=== PATIENT | male | born 1965 | race Caucasian/White ===

== ENCOUNTER 2018-01-23 16:04 | Emergency (ER) | payer MEDICAID ==
[2018-01-23 16:10] VITALS: BP 117/66
--- NOTE | 2018-01-23 16:21 | ED Physician Documentation ---
History of Present Illness - Stated complaint Stated Complaint: AFIB/MED REFILL - Chief complaint Chief Complaint: Cardiac - History obtained from History obtained from: Patient - History of Present Illness Timing: Other (He was diagnosed with atrial fibrillation around Veronica of last year and has been on metoprolol ever since. He has had some issues obtaining primary care follow-up but has an upcoming appointment. Needs a refill of his metoprolol. He also complains of right-sided low back pain radiating into the right leg for the last few days and would request some painkillers for that. He is not taking aspirin, he says he does not have the money for it needs a prescription for that as well.) Review of Systems Constitutional: denies: Fever, Chills Nose: denies: Rhinorrhea / runny nose, Congestion Cardiac: denies: Chest pain / pressure, Palpitations Respiratory: denies: Dyspnea, Cough PD PAST MEDICAL HISTORY - Present Medications Home Medications: Ambulatory Orders Medication Instructions Recorded Confirmed Acetaminophen [Tylenol] 650 mg PO Q6H PRN #30 tablet 01/23/18 Aspirin [Adult Aspirin] 81 mg PO DAILY #30 tablet. 01/23/18 HYDROcod/ACETAM 5/325 [[place] 5/325] 1 - 2 ea PO Q6H PRN #7 tablet 01/23/18 Metoprolol Tartrate 25 mg PO BID #60 tablet 01/23/18 PD ED PE NORMAL - Vitals Vital signs reviewed: Yes - General General: Alert and 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, No acute distress - Cardiac Cardiac: Other (Irregularly irregular) - Back Back: No spinal TTP - Extremities Extremities: Other (The patient has equal and normal Achilles and patellar reflexes bilaterally. Normal sensation in all areas of the legs. Patient denies saddle anesthesia. Normal strength in flexion-extension at the ankles, knees, and flexion of the hips. Bounding pedal pulses) - Neuro Neuro: Alert and 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, Normal speech Results - Vitals Vitals: Vital Signs - 24 hr 01/23/18 16:06 Temperature 36.8 C Heart Rate 115 H Respiratory 16 Rate Blood Pressure 117/66 O2 Saturation 97 Oxygen O2 Source Room air PD MEDICAL DECISION MAKING - Sepsis Event Vital Signs: Vital Signs - 24 hr 01/23/18 16:06 Temperature 36.8 C Heart Rate 115 H Respiratory 16 Rate Blood Pressure 117/66 O2 Saturation 97 Oxygen O2 Source Room air Departure - Departure Disposition: Home, Self Care Clinical Impression: Atrial fibrillation Qualifiers: Atrial fibrillation type: chronic Qualified Code(s): I48.2 - Chronic atrial fibrillation Back pain Qualifiers: Back pain location: low back pain Chronicity: acute Back pain laterality: right Sciatica presence: without sciatica Qualified Code(s): M54.5 - Low back pain Condition: Good Record reviewed to determine appropriate education?: Yes Instructions: Atrial Fibrillation Dc Prescriptions: Acetaminophen [Tylenol] 650 mg PO Q6H PRN #30 tablet PRN Reason: PRN PAIN &/OR FEVER Aspirin [Adult Aspirin] 81 mg PO DAILY #30 tablet. HYDROcod/ACETAM 5/325 [[place] 5/325] 1 - 2 ea PO Q6H PRN #7 tablet PRN Reason: Pain Metoprolol Tartrate 25 mg PO BID #60 tablet Comments: Follow-up with your physician in 4 days as scheduled. Return if worse or if new symptoms develop.
== END 2018-01-23 16:29 | disposition home or self-care (01) ==
LOC: ED 16:04
DX: Z76.0 Encounter for issue of repeat prescription (principal); I48.2 Chronic atrial fibrillation; M54.5 Low back pain; G89.29 Other chronic pain
CPT/HCPCS: 99283

== ENCOUNTER 2018-02-14 07:56 | Emergency (ER) | payer MEDICAID ==
--- NOTE | 2018-02-14 08:46 | ED Physician Documentation ---
History of Present Illness - Stated complaint Stated Complaint: MED REFILL - Chief complaint Chief Complaint: Ext Problem - History obtained from History obtained from: Patient - Additonal information Additional information: The patient is a 52-year-old male with history of atrial fibrillation who presents stating, "I need my medication." He has been on metoprolol 25 mg daily since being seen in the emergency department here 3 weeks ago. He states he lost his medication 2 days ago while backpacking. He has noticed palpitations and lightheadedness this morning. He denies chest pain or shortness of breath. He admits to drinking alcohol on a daily basis, and last had beer yesterday. In addition to the above he complains of intermittent pain in his right calf, which he has noticed for the past month. He denies any swelling in his legs. He does not have a primary physician. Review of his medical record reveals that when seen here 3 weeks ago he also complained of low back pain and right leg pain, with no neurologic deficit or pedal edema. Review of Systems Constitutional: reports: Other (Lightheaded). denies: Fever Ears: denies: Tinnitus/ringing Nose: denies: Congestion Throat: denies: Sore throat Cardiac: reports: Palpitations. denies: Chest pain / pressure Respiratory: denies: Dyspnea, Cough GI: denies: Abdominal Pain, Nausea, Vomiting : denies: Dysuria Skin: denies: Rash Musculoskeletal: reports: Extremity pain (Intermittent right calf pain.) Neurologic: reports: Headache. denies: Focal weakness, Numbness PD PAST MEDICAL HISTORY - Past Medical History Cardiovascular: Atrial fibrillation Respiratory: Sleep apnea - Past Surgical History Past Surgical History: No - Present Medications Home Medications: Ambulatory Orders Medication Instructions Recorded Confirmed Acetaminophen [Tylenol] 650 mg PO Q6H PRN #30 tablet 01/23/18 Aspirin [Adult Aspirin] 81 mg PO DAILY #30 tablet. 01/23/18 Carvedilol [Coreg] 1 tab PO DAILY 02/14/18 02/14/18 Metoprolol Tartrate [Lopressor] 25 mg PO BID #60 tablet 02/14/18 - Allergies Allergies/Adverse Reactions: Allergies Allergy/AdvReac Type Severity Reaction Status Date / Time No Known Drug Allergies Allergy Verified 01/23/18 16:21 - Social History Does the pt smoke?: Yes Smoking Status: Current every day smoker Does the pt drink ETOH?: Yes Does the pt have substance abuse?: No - Immunizations Immunizations are current?: Yes PD ED PE NORMAL - Vitals Vital signs reviewed: Yes (tachycardic) - General General: Alert and 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, Well developed/nourished, Other (Has a tendency to avoid eye contact.) - HEENT HEENT: Atraumatic, Moist mucous membranes, Pharynx benign - Neck Neck: No adenopathy, No JVD - Cardiac Cardiac: No murmur, Other (Rapid rate, irregularly irregular them.) - Respiratory Respiratory: No respiratory distress, Clear bilaterally - Abdomen Abdomen: Soft, Non tender, Other (Rotund abdomen.) - Back Back: No CVA TTP - Derm Derm: No rash - Extremities Extremities: No edema, Other (Mild tenderness to palpation at the posterolateral aspect of the right calf. There is no pedal edema.) - Neuro Neuro: Alert and 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, No motor deficit, No sensory deficit Results - Vitals Vitals: Vital Signs - 24 hr 02/14/18 02/14/18 02/14/18 08:09 08:20 09:36 Temperature 36.6 C Heart Rate 120 H 101 H 132 H Respiratory 18 18 11 L Rate Blood Pressure 141/120 H 192/138 H 159/91 H O2 Saturation 97 97 98 02/14/18 02/14/18 02/14/18 09:44 09:50 10:10 Temperature Heart Rate 102 H 88 116 H Respiratory 16 16 14 Rate Blood Pressure 144/102 H 154/105 H 139/113 H O2 Saturation 98 98 98 02/14/18 02/14/18 02/14/18 10:30 11:10 11:15 Temperature Heart Rate 113 H 110 H 97 Respiratory 15 14 14 Rate Blood Pressure 144/120 H 143/102 H 116/102 H O2 Saturation 99 97 98 02/14/18 02/14/18 02/14/18 11:22 11:35 11:57 Temperature Heart Rate 98 98 89 Respiratory 14 14 14 Rate Blood Pressure 116/97 H 144/89 H 149/94 H O2 Saturation 97 97 97 02/14/18 12:40 Temperature Heart Rate 88 Respiratory 14 Rate Blood Pressure 146/82 H O2 Saturation 98 Oxygen O2 Source Room air - EKG (time done) 08:21 Rate: Rate (enter#) (147) Rhythm: Atrial fibrillation [place]: Normal Ischemia: T wave inversion (in III.) Compare to prior EKG: Old EKG unavailable Computer interpretation: Agree with computer - Labs Labs: Laboratory Tests 02/14/18 02/14/18 02/14/18 09:25 09:25 09:25 WBC 8.7 RBC 4.89 Hgb 15.1 Hct 46.0 MCV 94.1 H MCH 31.0 MCHC 32.9 RDW 13.9 Plt Count 199 MPV 7.6 Neut # (Auto) 6.7 H Lymph # (Auto) 1.1 L [place] # (Auto) 0.7 Eos # (Auto) 0.2 Baso # (Auto) 0.0 Absolute Nucleated RBC 0.00 Nucleated RBC % 0.0 Sodium 136 Potassium 4.0 Chloride 98 L Carbon Dioxide 25 Anion Gap 13.0 BUN 13 Creatinine 0.9 Estimated GFR (MDRD) 88 L Glucose 110 H Calcium 9.0 Total Bilirubin 1.4 H AST 38 ALT 34 Alkaline Phosphatase 68 Troponin I < 0.04 Total Protein 7.8 Albumin 4.1 Globulin 3.7 Albumin/Globulin Ratio 1.1 Lipase 39 PD MEDICAL DECISION MAKING - ED course Complexity details: reviewed old records, reviewed results, re-evaluated patient , considered differential, d/w patient ED course: The patient's presentation is significant for atrial fibrillation with rapid ventricular response. Based on his history this appears to be recurrent, if not chronic, atrial fibrillation. He has been taking metoprolol until 3 days ago, which had apparently been controlling his rate. He has not been treated with anticoagulant medication. Since his last emergency department visit one month ago, he has been seen in outpatient clinic once, but states, "they wouldn' t even prescribe any medication." His symptoms, electrocardiogram, and troponin do not suggest an acute myocardial ischemic event. Treatment in the emergency department included administration of normal saline 1 L IV, 4 baby aspirin orally, metoprolol 5 mg IV, followed by diltiazem 10 mg IV, and metoprolol 25 mg orally. His tachycardia resolved with the above treatment, and he maintained good blood pressure. He felt subjectively much improved, and was anxious to be discharged. I discussed with him the importance of outpatient follow-up, including potentially a cardiology referral. He is being discharged with prescription for metoprolol 25 mg twice daily. I discussed with him potentially worrisome signs or symptoms that should prompt reevaluation in the emergency department. - Sepsis Event Vital Signs: Vital Signs - 24 hr 02/14/18 02/14/18 02/14/18 08:09 08:20 09:36 Temperature 36.6 C Heart Rate 120 H 101 H 132 H Respiratory 18 18 11 L Rate Blood Pressure 141/120 H 192/138 H 159/91 H O2 Saturation 97 97 98 02/14/18 02/14/18 02/14/18 09:44 09:50 10:10 Temperature Heart Rate 102 H 88 116 H Respiratory 16 16 14 Rate Blood Pressure 144/102 H 154/105 H 139/113 H O2 Saturation 98 98 98 02/14/18 02/14/18 02/14/18 10:30 11:10 11:15 Temperature Heart Rate 113 H 110 H 97 Respiratory 15 14 14 Rate Blood Pressure 144/120 H 143/102 H 116/102 H O2 Saturation 99 97 98 02/14/18 02/14/18 02/14/18 11:22 11:35 11:57 Temperature Heart Rate 98 98 89 Respiratory 14 14 14 Rate Blood Pressure 116/97 H 144/89 H 149/94 H O2 Saturation 97 97 97 02/14/18 12:40 Temperature Heart Rate 88 Respiratory 14 Rate Blood Pressure 146/82 H O2 Saturation 98 Oxygen O2 Source Room air Departure - Departure Disposition: 01 Home, Self Care Clinical Impression: Atrial fibrillation with rapid ventricular response Condition: Stable Instructions: ED Afib Follow-Up: [facility] [Provider Group] Prescriptions: Metoprolol Tartrate [Lopressor] 25 mg PO BID #60 tablet Comments: Resume taking metoprolol as prescribed. You should also take aspirin daily. Follow up with your primary physician within 2 weeks as scheduled. Return to the emergency department if you develop recurrent tachycardia, chest pain, shortness of breath, or otherwise worsening symptoms. Discharge Date/Time: 02/14/18 12:49
[2018-02-14] MEDS ORDERED: METOPROLOL 5 MG/5 ML VIAL IVP STA (09:11)
[2018-02-14] MEDS ORDERED: SODIUM CHLORIDE 0.9% 1,000 ML IV ONE ×2 (09:11→10:54)
[2018-02-14 09:32] LABS: BASOPHILS % (AUTO) 0.4 %; EOSINOPHILS # (AUTO) 0.2 10^3/uL (0.0-0.7); EOSINOPHILS % (AUTO) 2.2 %; HGB - HEMOGLOBIN 15.1 g/dL (14.0-18.0); LYMPHOCYTES # (AUTO) 1.1 10^3/uL (1.5-3.5); LYMPHOCYTES % (AUTO) 12.6 %; MEAN CORPUSCULAR HGB CONC 32.9 g/dL (32.0-36.0); MEAN CORPUSCULAR VOLUME 94.1 fL (80.0-94.0); MEAN PLATELET VOLUME 7.6 fL (7.4-11.4); MONOCYTES # (AUTO) 0.7 10^3/uL (0.0-1.0); MONOCYTES % (AUTO) 7.8 %; NEUTROPHILS # (AUTO) 6.7 10^3/uL (1.5-6.6); PLT - PLATELET COUNT 199 10^3/uL (130-450); RED BLOOD COUNT 4.89 10^6/uL (4.70-6.10); RED CELL DISTRIBUTION WIDTH 13.9 % (12.0-15.0); WHITE BLOOD COUNT 8.7 x10^3/uL (4.8-10.8)
[2018-02-14 09:45] LABS: ALBUMIN 4.1 g/dL (3.2-5.5); ALBUMIN/GLOBULIN RATIO 1.1 (1.0-2.2); BILIRUBIN,TOTAL 1.4 mg/dL (0.2-1.0); CREATININE 0.9 mg/dL (0.6-1.2); TOTAL PROTEIN 7.8 g/dL (6.7-8.2)
[2018-02-14] MEDS ORDERED: METOPROLOL TARTRATE 50 MG TABLET PO STA (10:53)
[2018-02-14] MEDS ORDERED: diltiaZEM INJ 5 MG/ML VIAL IVP STA (10:53)
[2018-02-14] MEDS ORDERED: ASPIRIN CHEW 81 MG TABLET PO STA (10:54)
[2018-02-14 12:51] VITALS: BP 146/82
== END 2018-02-14 12:49 | disposition home or self-care (01) ==
LOC: ED 07:56
DX: I48.91 Unspecified atrial fibrillation (principal); F17.200 Nicotine dependence, unspecified, uncomplicated; Z79.82 Long term (current) use of aspirin
CPT/HCPCS: 36415; 80053; 83690; 84484; 85025; 93005; 96361; 96374; 96375; 99284; 99285; A9270

== ENCOUNTER 2018-02-16 04:47 | Outpatient (CLI) | payer MEDICAID | END 2018-02-16 04:48 | disposition critical access hospital (66) | LOC: EMS 04:47 | PROVIDERS: ATTEND Surgery | DX: R09.89 Other specified symptoms and signs involving the circulatory and respiratory systems (principal) | CPT/HCPCS: A0425; A0429 ==

== ENCOUNTER 2018-02-16 05:03 | Emergency (ER) | payer MEDICAID ==
--- NOTE | 2018-02-16 05:46 | XRAY Report ---
Procedure Date: 02/16/2018 Accession Number: [id number] / [id number] Procedure: XR - Chest 2 View X-Ray CPT Code: 33170 FULL RESULT: EXAM: CHEST RADIOGRAPHY EXAM DATE: 02/16/2018 05:40 AM. CLINICAL HISTORY: Chest pain. COMPARISON: None. TECHNIQUE: 2 views. FINDINGS: Lungs/Pleura: No alveolar consolidation or pleural effusion seen. No pneumothorax. Mediastinum: Heart and mediastinal contours are unremarkable. Other: None. IMPRESSION: 1. No acute abnormality seen in the chest. RADIA
--- NOTE | 2018-02-16 06:05 | ED Physician Documentation ---
History of Present Illness - Stated complaint Stated Complaint: AFIB/ETOH - Chief complaint Chief Complaint: Cardiac - History obtained from History obtained from: Patient - Additonal information Additional information: 52-year-old male was brought to the emergency department for evaluation of atrial fibrillation and has a known history of atrial fibrillation. This evening the patient consumed a significant amount of alcohol and called EMS. The patient reports being out of his medications. The patient's history is somewhat limited secondary to his intoxicated state. Presently the patient is denying chest pain or shortness of breath. Symptoms are described as moderate. No other associated symptoms Review of Systems Unable to obtain: Intoxicated Constitutional: reports: Fatigue. denies: Fever Cardiac: reports: Palpitations. denies: Chest pain / pressure Respiratory: denies: Dyspnea GI: denies: Abdominal Pain PD PAST MEDICAL HISTORY - Past Medical History Past Medical History: Yes Cardiovascular: Atrial fibrillation Respiratory: Sleep apnea - Past Surgical History Past Surgical History: No - Present Medications Home Medications: Ambulatory Orders Medication Instructions Recorded Confirmed Acetaminophen [Tylenol] 650 mg PO Q6H PRN #30 tablet 01/23/18 Aspirin [Adult Aspirin] 81 mg PO DAILY #30 tablet. 01/23/18 Carvedilol [Coreg] 1 tab PO DAILY 02/14/18 02/14/18 Metoprolol Tartrate [Lopressor] 25 mg PO BID #60 tablet 02/14/18 - Allergies Allergies/Adverse Reactions: Allergies Allergy/AdvReac Type Severity Reaction Status Date / Time No Known Drug Allergies Allergy Verified 02/16/18 05:08 - Social History Does the pt smoke?: No Smoking Status: Never smoker Does the pt drink ETOH?: Yes Does the pt have substance abuse?: No - Immunizations Immunizations are current?: Yes - POLST Patient has POLST: No PD ED PE NORMAL - General General: No acute distress, Other (The patient is alert and intoxicated) - HEENT HEENT: Atraumatic, PERRL, EOMI - Neck Neck: Supple, no meningeal sign - Cardiac Cardiac: Other (Irregular rhythm with normal rate) - Respiratory Respiratory: No respiratory distress - Abdomen Abdomen: Normal bowel sounds - Derm Derm: Normal color - Extremities Extremities: No deformity, Normal ROM s pain - Neuro Neuro: Other (The patient is alert, follows simple commands and is intoxicated) - Psych Psych: Normal mood Results - Vitals Vitals: Vital Signs - 24 hr 02/16/18 05:04 Temperature 36.1 C L Heart Rate 80 Respiratory 18 Rate Blood Pressure 111/66 O2 Saturation 97 Oxygen O2 Source Room air - EKG (time done) No standard instances Rate: Rate (enter#) (78 beats a minute) Rhythm: Atrial fibrillation Intervals: QRS normal Ischemia: Non specific changes Other comments: Other comments (Atrial fibrillation with controlled rate and no acute ischemic changes) - Labs Labs: Laboratory Tests 02/16/18 02/16/18 02/16/18 06:40 06:40 06:40 WBC 6.2 RBC 4.41 L Hgb 13.7 L Hct 42.2 MCV 95.8 H MCH 31.1 H MCHC 32.5 RDW 13.9 Plt Count 184 MPV 7.6 Neut # (Auto) 2.7 Lymph # (Auto) 2.6 [place] # (Auto) 0.4 Eos # (Auto) 0.6 Baso # (Auto) 0.0 Absolute Nucleated RBC 0.00 Nucleated RBC % 0.0 PT 10.1 INR 0.9 APTT 25.5 Sodium 138 Potassium 3.7 Chloride 102 Carbon Dioxide 24 Anion Gap 12.0 BUN 11 Creatinine 0.9 Estimated GFR (MDRD) 88 L Glucose 109 H Calcium 8.6 Magnesium 2.3 Total Bilirubin 0.3 AST 47 H ALT 37 Alkaline Phosphatase 71 Total Creatine Kinase 124 B-Natriuretic Peptide Total Protein 7.5 Albumin 4.2 Globulin 3.3 Albumin/Globulin Ratio 1.3 Lipase 82 H 02/16/18 06:40 WBC RBC Hgb Hct MCV MCH MCHC RDW Plt Count MPV Neut # (Auto) Lymph # (Auto) [place] # (Auto) Eos # (Auto) Baso # (Auto) Absolute Nucleated RBC Nucleated RBC % PT INR APTT Sodium Potassium Chloride Carbon Dioxide Anion Gap BUN Creatinine Estimated GFR (MDRD) Glucose Calcium Magnesium Total Bilirubin AST ALT Alkaline Phosphatase Total Creatine Kinase B-Natriuretic Peptide 188 H Total Protein Albumin Globulin Albumin/Globulin Ratio Lipase - Rads (name of study) CXR Radiology: See rad report (Impression: No acute disease) PD MEDICAL DECISION MAKING - ED course Complexity details: other (The patient's care will be turned over to the oncoming emergency physician Dr. Klein to follow-up on the patient's labs and reevaluation once the patient's not heavily intoxicated and for final disposition) - Sepsis Event Vital Signs: Vital Signs - 24 hr 02/16/18 05:04 Temperature 36.1 C L Heart Rate 80 Respiratory 18 Rate Blood Pressure 111/66 O2 Saturation 97 Oxygen O2 Source Room air Departure - Departure Clinical Impression: Intoxication Atrial fibrillation Qualifiers: Atrial fibrillation type: chronic Qualified Code(s): I48.2 - Chronic atrial fibrillation
[2018-02-16 06:47] LABS: BASOPHILS % (AUTO) 0.6 %; EOSINOPHILS # (AUTO) 0.6 10^3/uL (0.0-0.7); EOSINOPHILS % (AUTO) 9.6 %; HGB - HEMOGLOBIN 13.7 g/dL (14.0-18.0); LYMPHOCYTES # (AUTO) 2.6 10^3/uL (1.5-3.5); LYMPHOCYTES % (AUTO) 41.4 %; MEAN CORPUSCULAR HEMOGLOBIN 31.1 pg (27.0-31.0); MEAN CORPUSCULAR HGB CONC 32.5 g/dL (32.0-36.0); MEAN CORPUSCULAR VOLUME 95.8 fL (80.0-94.0); MEAN PLATELET VOLUME 7.6 fL (7.4-11.4); MONOCYTES # (AUTO) 0.4 10^3/uL (0.0-1.0); MONOCYTES % (AUTO) 5.8 %; NEUTROPHILS # (AUTO) 2.7 10^3/uL (1.5-6.6); NEUTROPHILS % (AUTO) 42.6 %; PLT - PLATELET COUNT 184 10^3/uL (130-450); RED BLOOD COUNT 4.41 10^6/uL (4.70-6.10); RED CELL DISTRIBUTION WIDTH 13.9 % (12.0-15.0); WHITE BLOOD COUNT 6.2 x10^3/uL (4.8-10.8)
[2018-02-16 06:54] LABS: INR 0.9 (0.8-1.2); PT - PROTHROMBIN TIME 10.1 secs (9.9-12.6)
[2018-02-16 06:58] LABS: ALBUMIN 4.2 g/dL (3.2-5.5); ALBUMIN/GLOBULIN RATIO 1.3 (1.0-2.2); BILIRUBIN,TOTAL 0.3 mg/dL (0.2-1.0); CALCIUM 8.6 mg/dL (8.5-10.3); CREATININE 0.9 mg/dL (0.6-1.2); MAGNESIUM 2.3 mg/dL (1.7-2.8); TOTAL PROTEIN 7.5 g/dL (6.7-8.2)
[2018-02-16] MEDS ORDERED: METOPROLOL TARTRATE 50 MG TABLET PO STA (16:50)
[2018-02-16 17:55] VITALS: BP 110/80
--- NOTE | 2018-03-15 14:28 | ED Physician Documentation ---
ED Addendum - Addendum Addendum: 03/15/18 14:26 The patient was stable through the day. Got verbal report from night EDMD and assessed patient who was asleep at time of shift onset. He slept several hours. He did not have any complaints other than hungry and was given sandwiches. He did not have a ride nor friend to call. Subsequently he was well sober and walking well, talking clearly, and was discharged from the ER. He was going to call a taxi. Disposition: discharged home stable Diagnoses: alcohol intoxication, chronic atrial fibrillation, out of medication
== END 2018-02-16 17:50 | disposition home or self-care (01) ==
LOC: EDBD → EDUNIT# → ED 05:03
DX: F10.120 Alcohol abuse with intoxication, uncomplicated (principal); I48.2 Chronic atrial fibrillation
CPT/HCPCS: 36415; 71046; 80053; 80320; 82550; 83690; 83735; 83880; 85025; 85610; 85730; 93005; 99283; A9270

== ENCOUNTER 2018-02-17 21:22 | Outpatient (CLI) | payer MEDICAID | END 2018-02-17 21:23 | disposition critical access hospital (66) | LOC: EMS 21:22 | PROVIDERS: ATTEND Surgery | DX: R51 Headache (principal); Z72.89 Other problems related to lifestyle | CPT/HCPCS: A0425; A0429 ==

== ENCOUNTER 2018-02-17 21:37 | Emergency (ER) | payer MEDICAID ==
--- NOTE | 2018-02-17 22:04 | ED Physician Documentation ---
History of Present Illness - Stated complaint Stated Complaint: ETOH - Chief complaint Chief Complaint: General - History obtained from History obtained from: Patient (52-year-old male who recently moved to the area. Return to the emergency department for reevaluation of intoxication. The patient has had numerous visits recently for intoxication and refills of his medications. Today the patient wore out his welcome at a local convenience store and called EMS. The patient has no active medical complaints. The patient is noncompliant with his medical care. No reports of injury. The patient is conversant and able to answer all my questions and appears to be in no acute distress) Review of Systems Constitutional: denies: Fever Eyes: denies: Loss of vision Ears: denies: Ear pain Nose: denies: Rhinorrhea / runny nose, Congestion Cardiac: denies: Chest pain / pressure, Palpitations Respiratory: denies: Dyspnea GI: denies: Abdominal Pain PD PAST MEDICAL HISTORY - Past Medical History Cardiovascular: Atrial fibrillation Respiratory: Sleep apnea - Past Surgical History Past Surgical History: No - Present Medications Home Medications: Ambulatory Orders Medication Instructions Recorded Confirmed Acetaminophen [Tylenol] 650 mg PO Q6H PRN #30 tablet 01/23/18 Aspirin [Adult Aspirin] 81 mg PO DAILY #30 tablet. 01/23/18 Carvedilol [Coreg] 1 tab PO DAILY 02/14/18 02/14/18 Metoprolol Tartrate [Lopressor] 25 mg PO BID #60 tablet 02/14/18 Metoprolol Tartrate [Lopressor] 25 mg PO BID #60 tablet 02/16/18 - Allergies Allergies/Adverse Reactions: Allergies Allergy/AdvReac Type Severity Reaction Status Date / Time No Known Drug Allergies Allergy Verified 02/17/18 21:51 - Social History Does the pt smoke?: No Smoking Status: Never smoker Does the pt drink ETOH?: Yes Does the pt have substance abuse?: No - Immunizations Immunizations are current?: Yes - POLST Patient has POLST: No PD ED PE NORMAL - General General: Alert and 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, No acute distress - HEENT HEENT: Atraumatic, PERRL, EOMI, Ears normal - Cardiac Cardiac: Other (Irregular rhythm, rate controlled) - Respiratory Respiratory: No respiratory distress - Extremities Extremities: No deformity - Neuro Neuro: Alert and 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, Normal speech - Psych Psych: Normal mood Results - Vitals Vitals: Vital Signs - 24 hr 02/17/18 21:45 Temperature 36.6 C Heart Rate 90 Respiratory 17 Rate Blood Pressure 112/79 O2 Saturation 98 Oxygen O2 Source Room air PD MEDICAL DECISION MAKING - ED course Complexity details: other (The patient's been seen in the emergency department recently multiple times, the patient recently had lab work which was unremarkable. The patient has no acute medical complaints today. The patient' s only complaint is that he consumed alcohol and has no place to sleep at. The patient has noMedical complaint and there is no evidence of any acute emergency medical condition which would necessitate further workup in the emergency department. Patient appears appropriate for discharge. I advised that he follow-up with primary care for ongoing outpatient management. I discussed warning signs and recommended returning for any worsening or any concerns.) - Sepsis Event Vital Signs: Vital Signs - 24 hr 02/17/18 21:45 Temperature 36.6 C Heart Rate 90 Respiratory 17 Rate Blood Pressure 112/79 O2 Saturation 98 Oxygen O2 Source Room air Departure - Departure Disposition: 01 Home, Self Care Clinical Impression: Alcohol intoxication Qualifiers: Complication of substance-induced condition: uncomplicated Qualified Code(s): F10.920 - Alcohol use, unspecified with intoxication, uncomplicated Condition: Good [facility] Comments: Worsening symptoms or any concerns
[2018-02-17] MEDS ORDERED: IBUPROFEN 600 MG TABLET PO STA (22:28)
[2018-02-17] MEDS ORDERED: ACETAMINOPHEN 500 MG TABLET PO STA (22:28)
[2018-02-18 06:31] VITALS: BP 102/64
== END 2018-02-18 06:32 | disposition home or self-care (01) ==
LOC: EDUNIT# → ED 21:37
DX: F10.920 Alcohol use, unspecified with intoxication, uncomplicated (principal); I48.91 Unspecified atrial fibrillation; Z79.82 Long term (current) use of aspirin; Z91.19 Patient's noncompliance with other medical treatment and regimen
CPT/HCPCS: 99282; 99283; A9270

== ENCOUNTER 2018-03-20 22:30 | Emergency (ER) | payer MEDICAID ==
--- NOTE | 2018-03-21 00:17 | ED Physician Documentation ---
History of Present Illness - Stated complaint Stated Complaint: HEADRUSH/BP ISSUE - Chief complaint Chief Complaint: Cardiac - History obtained from History obtained from: Patient - History of Present Illness Timing: Today (tonight) Pain level now: 0 - Additonal information Additional information: c/o fluttering in my chest which patient felt was c/w previous episodes of PATRIC , and generalized mild headache c/w previous episodes of high blood pressure. He does not have a cuff to check BP at home. He states that the symptoms have improved prior to this exam. Review of Systems Cardiac: reports: Palpitations. denies: Chest pain / pressure Respiratory: reports: Reviewed and negative GI: reports: Reviewed and negative Neurologic: reports: Headache. denies: Generalized weakness, Focal weakness, Numbness PD PAST MEDICAL HISTORY - Past Medical History Cardiovascular: Atrial fibrillation Respiratory: Sleep apnea Neuro: None GI: None : None HEENT: None Psych: Other Musculoskeletal: None Derm: None - Past Surgical History Past Surgical History: No - Present Medications Home Medications: Ambulatory Orders Medication Instructions Recorded Confirmed Acetaminophen [Tylenol] 650 mg PO Q6H PRN #30 tablet 01/23/18 Aspirin [Adult Aspirin] 81 mg PO DAILY #30 tablet. 01/23/18 Carvedilol [Coreg] 1 tab PO DAILY 02/14/18 02/14/18 Metoprolol Tartrate [Lopressor] 25 mg PO BID #60 tablet 02/14/18 Metoprolol Tartrate [Lopressor] 25 mg PO BID #60 tablet 02/16/18 Aspirin [Adult Aspirin] 81 mg PO DAILY #30 tablet. 03/21/18 Metoprolol Tartrate 25 mg PO BID #30 tablet 03/21/18 - Allergies Allergies/Adverse Reactions: Allergies Allergy/AdvReac Type Severity Reaction Status Date / Time No Known Drug Allergies Allergy Verified 03/20/18 22:45 - Social History Does the pt smoke?: No Smoking Status: Never smoker Does the pt drink ETOH?: Yes Does the pt have substance abuse?: No - Immunizations Immunizations are current?: Yes - POLST Patient has POLST: No PD ED PE NORMAL - Vitals Vital signs reviewed: Yes - General General: Alert and 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, Well developed/nourished - HEENT HEENT: PERRL, EOMI, Moist mucous membranes - Cardiac Cardiac: No murmur - Respiratory Respiratory: No respiratory distress, Clear bilaterally - Derm Derm: Normal color, Warm and dry - Extremities Extremities: No edema - Neuro Neuro: Alert and 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 PD ED PE EXPANDED - Cardiac Cardiac: Irregularly irregular Results - Vitals Vitals: Vital Signs - 24 hr 03/20/18 03/20/18 03/21/18 22:36 23:30 00:22 Temperature 37.1 C Heart Rate 107 H 93 101 H Respiratory 18 16 18 Rate Blood Pressure 139/97 H 134/93 H 123/80 O2 Saturation 96 96 96 Oxygen O2 Source Room air - EKG (time done) No standard instances Rate: Rate (enter#) (98) Rhythm: Atrial fibrillation [place]: Normal QRS: Normal Ischemia: Normal ST segments PD MEDICAL DECISION MAKING - ED course Complexity details: reviewed old records, considered differential, d/w patient - Sepsis Event Vital Signs: Vital Signs - 24 hr 03/20/18 03/20/18 03/21/18 22:36 23:30 00:22 Temperature 37.1 C Heart Rate 107 H 93 101 H Respiratory 18 16 18 Rate Blood Pressure 139/97 H 134/93 H 123/80 O2 Saturation 96 96 96 Oxygen O2 Source Room air Departure - Departure Disposition: 01 Home, Self Care Clinical Impression: Atrial fibrillation Condition: Good Instructions: ED Afib, ED HTN Established Prescriptions: Aspirin [Adult Aspirin] 81 mg PO DAILY #30 tablet. Metoprolol Tartrate 25 mg PO BID #30 tablet Comments: You need to arrange for regularly scheduled appointments with your primary care provider for refills on your chronic medications, such as metoprolol and aspirin. Prescriptions are being provided tonight to bridge until you can contact your doctor's office. As we discussed, these medications can often be called into a pharmacy without requiring a visit to the office (but this decision is up to your doctor and would certainly require regular visits initially and not missing appointments). Discharge Date/Time: 03/21/18 00:39
[2018-03-21 00:22] VITALS: BP 123/80
[2018-03-21] MEDS ORDERED: METOPROLOL TARTRATE 50 MG TABLET PO STA (00:25)
== END 2018-03-21 00:39 | disposition home or self-care (01) ==
LOC: ED 22:30
DX: I48.91 Unspecified atrial fibrillation (principal); Z79.82 Long term (current) use of aspirin
CPT/HCPCS: 93005; 99283; 99284; A9270

== ENCOUNTER 2018-04-21 12:41 | Outpatient (CLI) | payer MEDICAID | END 2018-04-21 12:42 | disposition critical access hospital (66) | LOC: EMS 12:41 | PROVIDERS: ATTEND Surgery | DX: R46.4 Slowness and poor responsiveness (principal); R26.81 Unsteadiness on feet; R32 Unspecified urinary incontinence | CPT/HCPCS: A0425; A0429; A0999 ==

== ENCOUNTER 2018-04-21 12:59 | Emergency (ER) | payer MEDICAID ==
[2018-04-21] MEDS ORDERED: MAGNESIUM SULFATE 2 GRAM 2 GM/50 ML BAG IV STA (13:30)
[2018-04-21] MEDS ORDERED: LORazepam 2 MG/ML VIAL IVP STA (13:30)
[2018-04-21] MEDS ORDERED: MULTIVITAMIN 10 ML in SODIUM CHLORIDE 0.9% 1,000 ML IV STA (13:30)
[2018-04-21] MEDS ORDERED: THIAMINE INJ 100 MG, FOLIC ACID INJ 1 MG in SODIUM CHLORIDE 0.9% 100ML 100 ML IV STA (13:30)
--- NOTE | 2018-04-21 13:34 | ED Physician Documentation ---
PD HPI ALTERED MENTAL STATUS - Stated complaint Stated Complaint: GLF - Chief complaint Chief Complaint: Neuro - History obtained from History obtained from: Patient, EMS - History of Present Illness Timing - onset: Today Timing - details: Abrupt onset Quality / character: Unresponsive Associated symptoms: Headache, Seizure activity Contributing factors: Other (stoppe alcohol 3 days ago) [place] status: Alert and 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, Ambulatory, Independent Similar symptoms before: Has not had sx before Recently seen: Not recently seen - Additional information Additional information: 52-year-old male with a history of alcoholism has stopped drinking about 3 days ago. Today he was found in a garden unconscious. He was eventually aroused and transported to the hospital. He states he has had some shaking with alcohol withdrawal he has never had a seizure previously that he is aware of. Review of Systems Constitutional: denies: Fever Eyes: denies: Decreased vision Ears: denies: Ear pain Nose: denies: Congestion Throat: denies: Sore throat Cardiac: denies: Chest pain / pressure, Palpitations Respiratory: denies: Dyspnea, Cough GI: denies: Abdominal Pain, Nausea, Vomiting : denies: Dysuria, Frequency Skin: denies: Rash, Lesions Musculoskeletal: denies: Neck pain, Back pain, Extremity pain Neurologic: reports: Altered mental status. denies: Generalized weakness, Focal weakness, Numbness PD PAST MEDICAL HISTORY - Past Medical History Cardiovascular: Atrial fibrillation Respiratory: Sleep apnea Neuro: None GI: None : None HEENT: None Psych: Other Musculoskeletal: None Derm: None - Past Surgical History Past Surgical History: No - Present Medications Home Medications: Ambulatory Orders Medication Instructions Recorded Confirmed Lorazepam [Ativan] 1 - 2 mg PO Q6HR PRN #20 tablet 04/21/18 - Allergies Allergies/Adverse Reactions: Allergies Allergy/AdvReac Type Severity Reaction Status Date / Time No Known Drug Allergies Allergy Verified 03/20/18 22:45 - Social History Does the pt smoke?: No Smoking Status: Never smoker Does the pt drink ETOH?: Yes Does the pt have substance abuse?: No - Immunizations Immunizations are current?: Yes - POLST Patient has POLST: No PD ED PE NORMAL - Vitals Vital signs reviewed: Yes (tachy to 136) - General General: No acute distress, Well developed/nourished, Other (The patient is withdrawn speaks softly and has some delay in execution of motor commands. ) - HEENT HEENT: Atraumatic, PERRL, EOMI, Other (dry mucous membranes) - Neck Neck: Supple, no meningeal sign, No bony TTP - Cardiac Cardiac: No murmur, Other (irregularly irregular with 2/6 holosystolic murmer at LSB. 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, No motor deficit, No sensory deficit, Normal speech Eye Opening: Spontaneous Motor: Obeys Commands Verbal: Oriented GCS Score: 15 - Psych Psych: Normal mood, Normal affect Results - Vitals Vitals: Vital Signs - 24 hr 04/21/18 04/21/18 04/21/18 13:05 13:30 14:00 Temperature 36.2 C L Heart Rate 136 H 106 H 96 Respiratory 16 16 16 Rate Blood Pressure 110/75 110/75 126/83 H O2 Saturation 95 04/21/18 17:20 Temperature 36.4 C L Heart Rate 79 Respiratory 16 Rate Blood Pressure 132/96 H O2 Saturation 97 Oxygen O2 Source Room air - EKG (time done) 1313 Rate: Rate (enter#) (120) Rhythm: Atrial fibrillation Ischemia: Non specific changes (flat T's inferior) Compare to prior EKG: Changed from prior EKG (SPT 03-20-18 rate has increased) Computer interpretation: Agree with computer - Labs Labs: Laboratory Tests 04/21/18 04/21/18 04/21/18 13:19 13:19 13:19 WBC 2.8 L RBC 4.11 L Hgb 13.5 L Hct 39.5 L MCV 96.2 H MCH 32.9 H MCHC 34.2 RDW 16.0 H Plt Count 66 L MPV 8.1 Neut # (Auto) 2.0 Lymph # (Auto) 0.5 L [place] # (Auto) 0.3 Eos # (Auto) 0.1 Baso # (Auto) 0.0 Absolute Nucleated RBC 0.00 Nucleated RBC % 0.0 Manual Slide Review Indicated WBC Morphology NORMAL APPEARANCE Platelet Estimate DECREASED (<130,000) Platelet Morphology NORMAL APPEARANCE RBC Morph Micro Appear NORMAL APPEARANCE Sodium 135 Potassium 3.6 Chloride 99 L Carbon Dioxide 21 Anion Gap 15.0 H BUN 16 Creatinine 1.1 Estimated GFR (MDRD) 70 L Glucose 159 H Calcium 8.9 Total Bilirubin 1.6 H AST 148 H ALT 122 H Alkaline Phosphatase 82 Total Creatine Kinase 100 CK-MB (CK-2) 4.5 Troponin I < 0.04 Total Protein 7.0 Albumin 4.2 Globulin 2.8 Albumin/Globulin Ratio 1.5 Lipase 55 H Urine Color Urine Clarity Urine pH Ur Specific [place] Urine Protein Urine Glucose (UA) Urine Ketones Urine Occult Blood Urine Nitrite Urine Bilirubin Urine Urobilinogen Ur Leukocyte Esterase Urine RBC Urine WBC Ur Squamous Epith Cells Urine Bacteria Ur Microscopic Review Urine Culture Comments Urine Opiates Screen Ur Oxycodone Screen Urine Methadone Screen Ur Propoxyphene Screen Ur Barbiturates Screen Ur Tricyclics Screen Ur Phencyclidine Scrn Ur Amphetamine Screen U Methamphetamines Scrn U Benzodiazepines Scrn Urine Cocaine Screen U Cannabinoids Screen Ethyl Alcohol < 5.0 04/21/18 14:08 WBC RBC Hgb Hct MCV MCH MCHC RDW Plt Count MPV Neut # (Auto) Lymph # (Auto) [place] # (Auto) Eos # (Auto) Baso # (Auto) Absolute Nucleated RBC Nucleated RBC % Manual Slide Review WBC Morphology Platelet Estimate Platelet Morphology RBC Morph Micro Appear Sodium Potassium Chloride Carbon Dioxide Anion Gap BUN Creatinine Estimated GFR (MDRD) Glucose Calcium Total Bilirubin AST ALT Alkaline Phosphatase Total Creatine Kinase CK-MB (CK-2) Troponin I Total Protein Albumin Globulin Albumin/Globulin Ratio Lipase Urine Color DARK YELLOW Urine Clarity CLEAR Urine pH 6.0 Ur Specific [place] 1.025 Urine Protein 30 H Urine Glucose (UA) NEGATIVE Urine Ketones 15 H Urine Occult Blood TRACE-INTA Urine Nitrite NEGATIVE Urine Bilirubin NEGATIVE Urine Urobilinogen 0.2 (NORMAL) Ur Leukocyte Esterase NEGATIVE Urine RBC None Seen Urine WBC 0-3 Ur Squamous Epith Cells NONE SEEN Urine Bacteria None Seen Ur Microscopic Review INDICATED Urine Culture Comments NOT INDICATED Urine Opiates Screen NEGATIVE Ur Oxycodone Screen NEGATIVE Urine Methadone Screen NEGATIVE Ur Propoxyphene Screen NEGATIVE Ur Barbiturates Screen NEGATIVE Ur Tricyclics Screen NEGATIVE Ur Phencyclidine Scrn NEGATIVE Ur Amphetamine Screen NEGATIVE U Methamphetamines Scrn NEGATIVE U Benzodiazepines Scrn NEGATIVE Urine Cocaine Screen NEGATIVE U Cannabinoids Screen NEGATIVE Ethyl Alcohol - Rads (name of study) CT head without Radiology: Prelim report reviewed (Impression: Normal head CT.), EMP read indepedently, See rad report PD MEDICAL DECISION MAKING - ED course Complexity details: reviewed results, re-evaluated patient, considered differential, d/w patient ED course: 52-year-old male was found unconscious in a garden admits to heavy alcohol use and discontinuing alcohol 3 days ago. He states that he did get shakes pretty badly and he has never had a seizure previously. His history is consistent with alcohol withdrawal seizure and he is medicated here in the emergency department with a banana bag intravenously and a milligram of Ativan intravenously as well. He sleeps well and feels improved and the social work assistant is consulted for alcohol resources. We will provide him with some Ativan to use over the next several days as needed. The patient did have atrial fibrillation with rapid ventricular response when he arrived here and with treatment he is rate reduced to 85. - Sepsis Event Vital Signs: Vital Signs - 24 hr 04/21/18 04/21/18 04/21/18 13:05 13:30 14:00 Temperature 36.2 C L Heart Rate 136 H 106 H 96 Respiratory 16 16 16 Rate Blood Pressure 110/75 110/75 126/83 H O2 Saturation 95 04/21/18 17:20 Temperature 36.4 C L Heart Rate 79 Respiratory 16 Rate Blood Pressure 132/96 H O2 Saturation 97 Oxygen O2 Source Room air Departure - Departure Disposition: 01 Home, Self Care Clinical Impression: Atrial fibrillation with rapid ventricular response, Dehydration Alcohol withdrawal seizure Qualifiers: Complication of substance-induced condition: uncomplicated Qualified Code(s): F10.230 - Alcohol dependence with withdrawal, uncomplicated Condition: Stable Instructions: ED Seizure Alcohol Withdrawal, ED Withdrawal Alcohol, ED Dehydration Follow-Up: [facility] [Provider Group] Prescriptions: Lorazepam [Ativan] 1 - 2 mg PO Q6HR PRN #20 tablet PRN Reason: withdrawal symptoms Discharge Date/Time: 04/21/18 17:27
[2018-04-21 13:46] LABS: BASOPHILS % (AUTO) 0.9 %; EOSINOPHILS # (AUTO) 0.1 10^3/uL (0.0-0.7); HGB - HEMOGLOBIN 13.5 g/dL (14.0-18.0); LYMPHOCYTES # (AUTO) 0.5 10^3/uL (1.5-3.5); LYMPHOCYTES % (AUTO) 16.4 %; MEAN CORPUSCULAR HEMOGLOBIN 32.9 pg (27.0-31.0); MEAN CORPUSCULAR HGB CONC 34.2 g/dL (32.0-36.0); MEAN CORPUSCULAR VOLUME 96.2 fL (80.0-94.0); MEAN PLATELET VOLUME 8.1 fL (7.4-11.4); MONOCYTES # (AUTO) 0.3 10^3/uL (0.0-1.0); NEUTROPHILS % (AUTO) 69.7 %; PLT - PLATELET COUNT 66 10^3/uL (130-450); RED BLOOD COUNT 4.11 10^6/uL (4.70-6.10); WHITE BLOOD COUNT 2.8 x10^3/uL (4.8-10.8)
[2018-04-21 13:53] LABS: ALBUMIN 4.2 g/dL (3.2-5.5); ALBUMIN/GLOBULIN RATIO 1.5 (1.0-2.2); ALKALINE PHOSPHATASE 82 IU/L (42-121); ALT ALANINE AMINOTRANSFERASE 122 IU/L (10-60); AST ASPARTATE AMINOTRANSFERASE 148 IU/L (10-42); BILIRUBIN,TOTAL 1.6 mg/dL (0.2-1.0); BUN - BLOOD UREA NITROGEN 16 mg/dL (6-20); CALCIUM 8.9 mg/dL (8.5-10.3); CARBON DIOXIDE - CO2 21 mmol/L (21-32); CHLORIDE 99 mmol/L (101-111); CK- CREATINE KINASE 100 IU/L (22-269); CREATININE 1.1 mg/dL (0.6-1.2); GFR - MDRD 70 (>89); GLUCOSE 159 mg/dL (70-100); LIPASE 55 U/L (22-51); SODIUM 135 mmol/L (135-145)
[2018-04-21 13:58] LABS: TROPONIN I < 0.04 ng/mL (<0.49)
[2018-04-21 14:00] LABS: CREATINE KINASE MB 4.5 ng/mL (0.6-6.3)
[2018-04-21 14:11] LABS: MUDS CUTOFF CONCENTRATIONS CUTOFF CONC BELOW:
[2018-04-21 14:15] LABS: GLUCOSE, URINE (UA) NEGATIVE (NEGATIVE); KETONES,URINE (UA) 15 mg/dL (NEGATIVE); LEUKOCYTE ESTERASE, URINE NEGATIVE (NEGATIVE); NITRITE,URINE NEGATIVE (NEGATIVE); OCCULT BLOOD,URINE TRACE-INTA (NEGATIVE); PROTEIN,URINE 30 mg/dL (NEGATIVE); UROBILINOGEN,URINE 0.2 (NORMAL) E.U./dL (NORMAL)
[2018-04-21 14:16] LABS: PLATELET ESTIMATE, MANUAL DECREASED (<130,000) (NORMAL); PLATELET MORPHOLOGY NORMAL APPEARANCE (NORMAL); RBC MORPHOLOGY (MULTIPLE) NORMAL APPEARANCE (NORMAL)
[2018-04-21 14:19] LABS: BILIRUBIN,URINE NEGATIVE (NEGATIVE); CLARITY,URINE CLEAR (CLEAR); ICTOTEST,URINE NEGATIVE
[2018-04-21 14:32] LABS: AMPHETAMINE SCREEN,URINE NEGATIVE (NEGATIVE); BACTERIA,URINE None Seen /HPF (None Seen); BENZODIAZEPINES SCREEN, URINE NEGATIVE (NEGATIVE); COCAINE SCREEN URINE NEGATIVE (NEGATIVE); METHADONE SCREEN, URINE NEGATIVE (NEGATIVE); METHAMPHETAMINES SCREEN, URINE NEGATIVE (NEGATIVE); OPIATE SCREEN, URINE NEGATIVE (NEGATIVE); OXYCODONE SCREEN, URINE NEGATIVE (NEGATIVE); PROPOXYPHENE SCREEN, URINE NEGATIVE (NEGATIVE); RBC,URINE None Seen /HPF (0-5); SQUAMOUS EPITHELIAL CELL,UR NONE SEEN (<= Few); TRICYCLIC ANTIDEPRESSANT,URINE NEGATIVE (NEGATIVE)
--- NOTE | 2018-04-21 15:19 | CT Report ---
Reason: seizure and headache Procedure Date: 04/21/2018 Accession Number: [id number] / [id number] Procedure: CT - Head W/O CPT Code: FULL RESULT: EXAM: CT HEAD EXAM DATE: 04/21/2018 02:38 PM. CLINICAL HISTORY: Seizure and headache. COMPARISON: None. TECHNIQUE: Multiaxial CT images were obtained from the foramen magnum to the vertex. Reformats: Coronal. IV contrast: None. In accordance with CT protocol optimization, one or more of the following dose reduction techniques were utilized for this exam: automated exposure control, adjustment of mA and/or KV based on patient size, or use of iterative reconstructive technique. FINDINGS: Parenchyma: No intraparenchymal hemorrhage. No evidence of mass, midline shift, or CT findings of infarction. Ledbetter-white differentiation is distinct. Extraaxial Spaces: Normal for age. No subdural or epidural collections identified. Ventricles: Normal in size and position. Sinuses and Orbits: Imaged paranasal sinuses, orbits, and mastoids show no significant abnormality. Bones: No evidence of fracture or calvarial defect. Other: None. IMPRESSION: Normal head CT. RADIA
[2018-04-21 17:21] VITALS: BP 132/96
== END 2018-04-21 17:27 | disposition home or self-care (01) ==
LOC: EDUNIT# → ED 12:59
DX: I48.91 Unspecified atrial fibrillation (principal); E86.0 Dehydration; F10.230 Alcohol dependence with withdrawal, uncomplicated
CPT/HCPCS: 36415; 70450; 80053; 80306; 80320; 81001; 82550; 82553; 83690; 84484; 85025; 93005; 96365; 96368; 96375; 99284; J2060; J3411; 81003; 87086

== ENCOUNTER 2018-04-26 08:36 | Outpatient (CLI) | payer MEDICAID | END 2018-04-26 08:37 | disposition critical access hospital (66) | LOC: EMS 08:36 | PROVIDERS: ATTEND Surgery | DX: M79.604 Pain in right leg (principal); M79.605 Pain in left leg; R20.0 Anesthesia of skin | CPT/HCPCS: A0425; A0429; A0999 ==

== ENCOUNTER 2018-04-26 08:54 | Emergency (ER) | payer MEDICAID ==
[2018-04-26] MEDS ORDERED: MULTIVITAMIN 10 ML in SODIUM CHLORIDE 0.9% 1,000 ML IV STA (09:07)
[2018-04-26] MEDS ORDERED: MAGNESIUM SULFATE 2 GRAM 2 GM/50 ML BAG IV STA (09:07)
[2018-04-26] MEDS ORDERED: THIAMINE INJ 100 MG, FOLIC ACID INJ 1 MG in SODIUM CHLORIDE 0.9% 100ML 100 ML IV STA (09:07)
--- NOTE | 2018-04-26 09:14 | ED Physician Documentation ---
History of Present Illness - Stated complaint Stated Complaint: BACK PX - Chief complaint Chief Complaint: Ext Problem - History obtained from History obtained from: Patient, EMS - History of Present Illness Timing: How many days ago (3) - Additonal information Additional information: 52 y/o male with a recent ED visit for alcohol withdrawal seizure has developed pain in the backs of both legs and weakness. He feels this is related to the seizure he had one week ago. He is having trouble walking. 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 The day after his seizure he returned to drinking about one 12 pack per day and he went back to work. He was able to work one day and was laid off the following day when his legs gave out on him. This morning he has had trouble even getting up to walk. He reports pain down the back of both legs since the seizure and this is something he has not had previously. He denies current illness. Review of Systems Constitutional: reports: Myalgias. denies: Fever, Chills Eyes: reports: Decreased vision (reports long standing myopia) Ears: denies: Ear pain Nose: denies: Rhinorrhea / runny nose, Congestion Throat: denies: Sore throat Cardiac: denies: Chest pain / pressure, Palpitations Respiratory: denies: Dyspnea, Cough GI: denies: Abdominal Pain, Nausea, Vomiting : denies: Dysuria, Frequency Skin: denies: Rash, Lesions Musculoskeletal: reports: Extremity pain, Pain with weight bearing. denies: Neck pain, Back pain, Extremity swelling, Joint swelling Neurologic: reports: Generalized weakness. denies: Focal weakness, Numbness PD PAST MEDICAL HISTORY - Past Medical History Cardiovascular: Atrial fibrillation Respiratory: Sleep apnea Neuro: None GI: None : None HEENT: None Psych: Other Musculoskeletal: None Derm: None - Past Surgical History Past Surgical History: No - Present Medications Home Medications: Ambulatory Orders Medication Instructions Recorded Confirmed Lorazepam [Ativan] 1 - 2 mg PO Q6HR PRN #20 tablet 04/21/18 Cyclobenzaprine [Flexeril] 10 mg PO TID PRN #20 tablet 04/26/18 RX: Metoprolol Tartrate [Lopressor] 25 mg PO BID #40 tablet 04/26/18 - Allergies Allergies/Adverse Reactions: Allergies Allergy/AdvReac Type Severity Reaction Status Date / Time No Known Drug Allergies Allergy Verified 03/20/18 22:45 - Social History Does the pt smoke?: No Smoking Status: Never smoker Does the pt drink ETOH?: Yes Does the pt have substance abuse?: No - Immunizations Immunizations are current?: Yes - POLST Patient has POLST: No PD ED PE NORMAL - Vitals Vital signs reviewed: Yes (normal ) - General General: Alert and 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, No acute distress, Well developed/nourished - HEENT HEENT: Atraumatic, PERRL, EOMI - Neck Neck: Supple, no meningeal sign, No bony TTP - Cardiac Cardiac: RRR, No murmur - Respiratory Respiratory: No respiratory distress, Clear bilaterally - Abdomen Abdomen: Soft, Non tender - Back Back: No CVA TTP, No spinal TTP - Derm Derm: Normal color, Warm and dry, No rash - Extremities Extremities: No deformity, No edema, Other (There is mild tenderness to the posterior thighs bilaterally ) - Neuro Neuro: Alert and 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, 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, No motor deficit, No sensory deficit, Normal speech Eye Opening: Spontaneous Motor: Obeys Commands Verbal: Oriented GCS Score: 15 - Psych Psych: Normal mood, Normal affect Results - Vitals Vitals: Oxygen O2 Source Nasal cannula - EKG (time done) 0913 Rate: Rate (enter#) (82) Rhythm: Atrial fibrillation Compare to prior EKG: Changed from prior EKG (SPT 04-21-18 the rate has decreased) Computer interpretation: Agree with computer - Labs Labs: Laboratory Tests 04/26/18 04/26/18 04/26/18 10:20 10:20 10:20 WBC 3.6 L RBC 4.07 L Hgb 13.4 L Hct 40.2 L MCV 98.8 H MCH 32.9 H MCHC 33.3 RDW 17.0 H Plt Count 94 L MPV 7.6 Neut # (Auto) 2.2 Lymph # (Auto) 0.8 L [place] # (Auto) 0.4 Eos # (Auto) 0.2 Baso # (Auto) 0.0 Absolute Nucleated RBC 0.00 Nucleated RBC % 0.0 Sodium 141 Potassium 3.9 Chloride 107 Carbon Dioxide 24 Anion Gap 10.0 BUN 13 Creatinine 0.9 Estimated GFR (MDRD) 88 L Glucose 120 H Calcium 8.6 Total Bilirubin 0.3 AST 117 H ALT 123 H Alkaline Phosphatase 71 Total Creatine Kinase 255 CK-MB (CK-2) 18.1 H Troponin I < 0.04 Total Protein 6.7 Albumin 4.0 Globulin 2.7 Albumin/Globulin Ratio 1.5 Lipase 79 H Urine Color Urine Clarity Urine pH Ur Specific [place] Urine Protein Urine Glucose (UA) Urine Ketones Urine Occult Blood Urine Nitrite Urine Bilirubin Urine Urobilinogen Ur Leukocyte Esterase Ur Microscopic Review Urine Culture Comments Urine Opiates Screen Ur Oxycodone Screen Urine Methadone Screen Ur Propoxyphene Screen Ur Barbiturates Screen Ur Tricyclics Screen Ur Phencyclidine Scrn Ur Amphetamine Screen U Methamphetamines Scrn U Benzodiazepines Scrn Urine Cocaine Screen U Cannabinoids Screen Ethyl Alcohol 245.4 04/26/18 11:17 WBC RBC Hgb Hct MCV MCH MCHC RDW Plt Count MPV Neut # (Auto) Lymph # (Auto) [place] # (Auto) Eos # (Auto) Baso # (Auto) Absolute Nucleated RBC Nucleated RBC % Sodium Potassium Chloride Carbon Dioxide Anion Gap BUN Creatinine Estimated GFR (MDRD) Glucose Calcium Total Bilirubin AST ALT Alkaline Phosphatase Total Creatine Kinase CK-MB (CK-2) Troponin I Total Protein Albumin Globulin Albumin/Globulin Ratio Lipase Urine Color YELLOW Urine Clarity CLEAR Urine pH 6.0 Ur Specific [place] >=1.030 H Urine Protein NEGATIVE Urine Glucose (UA) NEGATIVE Urine Ketones NEGATIVE Urine Occult Blood NEGATIVE Urine Nitrite NEGATIVE Urine Bilirubin NEGATIVE Urine Urobilinogen 0.2 (NORMAL) Ur Leukocyte Esterase NEGATIVE Ur Microscopic Review NOT INDICATED Urine Culture Comments NOT INDICATED Urine Opiates Screen NEGATIVE Ur Oxycodone Screen NEGATIVE Urine Methadone Screen NEGATIVE Ur Propoxyphene Screen NEGATIVE Ur Barbiturates Screen NEGATIVE Ur Tricyclics Screen NEGATIVE Ur Phencyclidine Scrn NEGATIVE Ur Amphetamine Screen NEGATIVE U Methamphetamines Scrn NEGATIVE U Benzodiazepines Scrn NEGATIVE Urine Cocaine Screen NEGATIVE U Cannabinoids Screen NEGATIVE Ethyl Alcohol Procedures - IVC sono (time) 0905 Bedside IVC sono: IVC measures (cm) (1.1), IVC collapsed c insp (cm) (complete), Dehydration (est 1.5 liter deficit) PD MEDICAL DECISION MAKING - ED course Complexity details: reviewed old records, reviewed results, re-evaluated patient, considered differential, d/w patient ED course: 52 y/o homeless alcoholic male has had a withdrawal seizure and in the recovery from this he has developed pain in the back of his thighs and weakness. He is found to be dehydrated and today he is intoxicated. He is hydrated with a banana bag IV and eventually he is able to walk out of the department with a large back pack on without the weakness he had when he arrived. His afib is rate controlled and his metoprolol is refilled. - Sepsis Event Vital Signs: Oxygen O2 Source Nasal cannula Departure - Departure Disposition: 01 Home, Self Care Clinical Impression: Alcohol intoxication, Dehydration, Sciatica Condition: Stable Instructions: ED Dehydration, ED Alcohol Intoxication, ED Sciatica Follow-Up: [facility] [Provider Group] Prescriptions: Cyclobenzaprine [Flexeril] 10 mg PO TID PRN #20 tablet PRN Reason: Spasms RX: Metoprolol Tartrate [Lopressor] 25 mg PO BID #40 tablet Discharge Date/Time: 04/26/18 16:46
[2018-04-26] MEDS ORDERED: DEXAMETHASONE 10 MG/ML VIAL IVP STA (09:42)
[2018-04-26 10:29] LABS: BASOPHILS % (AUTO) 0.6 %; EOSINOPHILS # (AUTO) 0.2 10^3/uL (0.0-0.7); EOSINOPHILS % (AUTO) 5.6 %; HGB - HEMOGLOBIN 13.4 g/dL (14.0-18.0); LYMPHOCYTES # (AUTO) 0.8 10^3/uL (1.5-3.5); LYMPHOCYTES % (AUTO) 21.4 %; MEAN CORPUSCULAR HEMOGLOBIN 32.9 pg (27.0-31.0); MEAN CORPUSCULAR HGB CONC 33.3 g/dL (32.0-36.0); MEAN CORPUSCULAR VOLUME 98.8 fL (80.0-94.0); MEAN PLATELET VOLUME 7.6 fL (7.4-11.4); MONOCYTES # (AUTO) 0.4 10^3/uL (0.0-1.0); MONOCYTES % (AUTO) 12.3 %; NEUTROPHILS # (AUTO) 2.2 10^3/uL (1.5-6.6); NEUTROPHILS % (AUTO) 60.1 %; PLT - PLATELET COUNT 94 10^3/uL (130-450); RED BLOOD COUNT 4.07 10^6/uL (4.70-6.10); WHITE BLOOD COUNT 3.6 x10^3/uL (4.8-10.8)
[2018-04-26 10:41] LABS: ALBUMIN/GLOBULIN RATIO 1.5 (1.0-2.2); BILIRUBIN,TOTAL 0.3 mg/dL (0.2-1.0); CALCIUM 8.6 mg/dL (8.5-10.3); CREATININE 0.9 mg/dL (0.6-1.2); TOTAL PROTEIN 6.7 g/dL (6.7-8.2)
[2018-04-26 10:45] LABS: TROPONIN I < 0.04 ng/mL (<0.49)
[2018-04-26 10:47] LABS: CREATINE KINASE MB 18.1 ng/mL (0.6-6.3)
[2018-04-26 11:26] LABS: MUDS CUTOFF CONCENTRATIONS CUTOFF CONC BELOW:
[2018-04-26 11:30] LABS: BILIRUBIN,URINE NEGATIVE (NEGATIVE); GLUCOSE, URINE (UA) NEGATIVE (NEGATIVE); KETONES,URINE (UA) NEGATIVE (NEGATIVE); LEUKOCYTE ESTERASE, URINE NEGATIVE (NEGATIVE); NITRITE,URINE NEGATIVE (NEGATIVE); OCCULT BLOOD,URINE NEGATIVE (NEGATIVE); PROTEIN,URINE NEGATIVE (NEGATIVE); UROBILINOGEN,URINE 0.2 (NORMAL) E.U./dL (NORMAL)
[2018-04-26 11:32] LABS: CLARITY,URINE CLEAR (CLEAR)
[2018-04-26 12:06] LABS: AMPHETAMINE SCREEN,URINE NEGATIVE (NEGATIVE); BENZODIAZEPINES SCREEN, URINE NEGATIVE (NEGATIVE); COCAINE SCREEN URINE NEGATIVE (NEGATIVE); METHADONE SCREEN, URINE NEGATIVE (NEGATIVE); METHAMPHETAMINES SCREEN, URINE NEGATIVE (NEGATIVE); OPIATE SCREEN, URINE NEGATIVE (NEGATIVE); OXYCODONE SCREEN, URINE NEGATIVE (NEGATIVE); PROPOXYPHENE SCREEN, URINE NEGATIVE (NEGATIVE); TRICYCLIC ANTIDEPRESSANT,URINE NEGATIVE (NEGATIVE)
[2018-04-26 14:31] VITALS: BP 128/103
== END 2018-04-26 16:46 | disposition home or self-care (01) ==
LOC: EDUNIT# → ED 08:54
DX: F10.120 Alcohol abuse with intoxication, uncomplicated (principal); E86.0 Dehydration; M54.30 Sciatica, unspecified side; I48.91 Unspecified atrial fibrillation; Z79.899 Other long term (current) drug therapy
CPT/HCPCS: 36415; 80053; 80306; 80320; 81001; 81003; 82550; 82553; 83690; 84484; 85025; 87086; 93005; 96365; 96367; 96368; 99284

== ENCOUNTER 2018-04-28 23:55 | Outpatient (CLI) | payer MEDICAID | END 2018-04-28 23:56 | disposition critical access hospital (66) | LOC: EMS 23:55 | PROVIDERS: ATTEND Surgery | DX: M79.605 Pain in left leg (principal); M79.604 Pain in right leg | CPT/HCPCS: A0425; A0429; A0999 ==

== ENCOUNTER 2018-04-29 00:11 | Emergency (ER) | payer MEDICAID ==
[2018-04-29 00:24] VITALS: BP 116/90
[2018-04-29] MEDS ORDERED: KETOROLAC 60 MG/2 ML VIAL IM STA (00:53)
--- NOTE | 2018-04-29 00:54 | ED Physician Documentation ---
PD HPI BACK PAIN - Stated complaint Stated Complaint: LEG PX - Chief complaint Chief Complaint: Ext Problem - History obtained from History obtained from: Patient, EMS - History of Present Illness Timing - onset: Chronic Timing - details: Gradual onset, Still present Location: Lower, Left Quality: Pain, Aching Worsened by: Movement, Palpation Similar symptoms before: Work up / diagnostics Recently seen: Emergency Dept - Additional information Additional information: Patient is a 52 year old male with a history of alcoholism who is presenting to the emergency department for back pain. patient pain is chronic in nature and patient was seen two days ago for the same symptoms. diagnostics including electrolytes were withi normal limits. patient states he is homeless and walks around all day with his back pack making his symptmos worse. Patient denies any trauma. Review of Systems Ten Systems: 10 systems reviewed and negative Musculoskeletal: reports: Back pain PD PAST MEDICAL HISTORY - Past Medical History Past Medical History: Yes Cardiovascular: Atrial fibrillation Respiratory: Sleep apnea Neuro: None GI: None : None HEENT: None Psych: Other Musculoskeletal: None Derm: None - Past Surgical History Past Surgical History: No - Present Medications Home Medications: Ambulatory Orders Medication Instructions Recorded Confirmed Lorazepam [Ativan] 1 - 2 mg PO Q6HR PRN #20 tablet 04/21/18 Cyclobenzaprine [Flexeril] 10 mg PO TID PRN #20 tablet 04/26/18 Metoprolol Tartrate [Lopressor] 25 mg PO BID #40 tablet 04/26/18 - Allergies Allergies/Adverse Reactions: Allergies Allergy/AdvReac Type Severity Reaction Status Date / Time No Known Drug Allergies Allergy Verified 03/20/18 22:45 - Social History Does the pt smoke?: No Smoking Status: Never smoker Does the pt drink ETOH?: Yes Does the pt have substance abuse?: No - Immunizations Immunizations are current?: Yes - POLST Patient has POLST: No PD ED PE NORMAL - Vitals Vital signs reviewed: Yes - General General: Alert and 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, No acute distress - HEENT HEENT: Atraumatic - Cardiac Cardiac: RRR - Respiratory Respiratory: No respiratory distress - Derm Derm: Normal color - Neuro Eye Opening: Spontaneous PD ED PE EXPANDED - Back Back: Soft tissue tenderness (mild tenderness to palpation, no gross abnormality) - Extremities Extremities: Right thigh (mild tenderness to palpation), Left thigh - Neuro Neuro: Other (mild tremor) Results - Vitals Vitals: Vital Signs - 24 hr 04/29/18 00:21 Temperature 37.1 C Heart Rate 100 Respiratory 16 Rate Blood Pressure 116/90 H O2 Saturation 96 Oxygen O2 Source Room air PD MEDICAL DECISION MAKING - ED course Complexity details: reviewed old records, re-evaluated patient, considered differential, d/w patient ED course: Patient was seen and examined at bedside. patient was in no acute distress. Patient's previous documentation and diagnostics were reviewed and showed no acute abnormalities. Patient was treated with ibuprofen. patient was also treated with librium for mild shaking since he is an alcoholic. Patient required no further inpatient work up and was stable for discharge with outpatient followup. - Sepsis Event Vital Signs: Vital Signs - 24 hr 04/29/18 00:21 Temperature 37.1 C Heart Rate 100 Respiratory 16 Rate Blood Pressure 116/90 H O2 Saturation 96 Oxygen O2 Source Room air Departure - Departure Disposition: 01 Home, Self Care Clinical Impression: Back pain Condition: Good Instructions: ED Low Back Pain Injury Follow-Up: [facility] [Provider Group] Comments: You should call the clinic to schedule a follow up appointment. you can take motrin or tylenol as needed for pain. You may return to the emergency department at any time for new, worsening or uncontrollable symptoms.
[2018-04-29] MEDS ORDERED: chlordiazePOXIDE 25 MG CAPSULE PO STA (01:01)
== END 2018-04-29 01:29 | disposition home or self-care (01) ==
LOC: EDUNIT# → ED 00:11
DX: M54.9 Dorsalgia, unspecified (principal)
CPT/HCPCS: 96372; 99283; A9270

== ENCOUNTER 2018-04-30 23:57 | Outpatient (CLI) | payer MEDICAID | END 2018-04-30 23:58 | disposition critical access hospital (66) | LOC: EMS 23:57 | PROVIDERS: ATTEND Surgery | DX: R20.0 Anesthesia of skin (principal); M79.672 Pain in left foot; M79.671 Pain in right foot | CPT/HCPCS: A0425; A0429; A0999 ==

== ENCOUNTER 2018-05-01 00:13 | Emergency (ER) | payer MEDICAID ==
--- NOTE | 2018-05-01 02:57 | ED Physician Documentation ---
History of Present Illness - Stated complaint Stated Complaint: NUMB LEGS/FOOT PAIN - Chief complaint Chief Complaint: Back Pain - History obtained from History obtained from: Patient - History of Present Illness Timing: Chronic Pain level max: 10 Pain level now: 10 - Additonal information Additional information: 4th [facility] ED visit in 10 days, 9th [facility] ED visit in 3 months. moved to [place] earlier this year. while awaiting evaluation, patient was loud, yelling, turned over bedside velazco stand, and made inappropriate comments to ED kennel staff member. patient tells me he is here for BLE pain and swelling. despite numerous attempts to ascertain timeframe, he provides no timeframe as to symptom onset or duration. he repeatedly tells me its a ten when I ask him how long the symptoms have been present. Review of Systems Constitutional: reports: Reviewed and negative Cardiac: reports: Reviewed and negative Respiratory: reports: Reviewed and negative GI: reports: Reviewed and negative Musculoskeletal: reports: Extremity pain, Extremity swelling Neurologic: reports: Reviewed and negative PD PAST MEDICAL HISTORY - Past Medical History Cardiovascular: Atrial fibrillation Respiratory: Sleep apnea Neuro: None GI: None : None HEENT: None Psych: Other Musculoskeletal: None Derm: None - Past Surgical History Past Surgical History: No - Present Medications Home Medications: Ambulatory Orders Medication Instructions Recorded Confirmed Lorazepam [Ativan] 1 - 2 mg PO Q6HR PRN #20 tablet 04/21/18 Cyclobenzaprine [Flexeril] 10 mg PO TID PRN #20 tablet 04/26/18 Metoprolol Tartrate [Lopressor] 25 mg PO BID #40 tablet 04/26/18 Naproxen Sodium 220 mg PO BID PRN #14 tablet 05/01/18 - Allergies Allergies/Adverse Reactions: Allergies Allergy/AdvReac Type Severity Reaction Status Date / Time No Known Drug Allergies Allergy Verified 03/20/18 22:45 - Social History Does the pt smoke?: No Smoking Status: Never smoker Does the pt drink ETOH?: Yes Does the pt have substance abuse?: No - Immunizations Immunizations are current?: Yes - POLST Patient has POLST: No PD ED PE NORMAL - Vitals Vital signs reviewed: Yes - General General: Alert and 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, No acute distress, Well developed/nourished - Cardiac Cardiac: RRR, No murmur, No gallop, No rub - Respiratory Respiratory: No respiratory distress, Clear bilaterally - Abdomen Abdomen: Soft, Non tender - Extremities Extremities: No tenderness to palpate, Normal ROM s pain - Neuro Neuro: Alert and 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, patient observer 2-12 intact, No motor deficit, No sensory deficit, Normal speech PD ED PE EXPANDED - Extremities Extremities: Pedal edema bilateral (mild BLE pitting edema) Results - Vitals Vitals: Oxygen O2 Source Room air PD MEDICAL DECISION MAKING - ED course Complexity details: reviewed old records, re-evaluated patient, considered differential, d/w patient ED course: presents to ED with backpack and numerous bags of personal possessions. c/o BLE swelling and pain, for which he has been in this ED recently numerous times before. Per ED RN, he was under arrest tonight when he c/o severe BLE pain and thus BIBA. I ask him if he has sought outpatient f/u, and he tells me he has been seen at a clinic in [facility] and repeatedly expresses dissatisfaction with the clinic because they want him to make regularly scheduled 30-day appointments with them. he repeatedly tells me that place is a joke. - Sepsis Event Vital Signs: Oxygen O2 Source Room air Departure - Departure Disposition: 01 Home, Self Care Clinical Impression: Lower extremity pain, bilateral Condition: Good Instructions: ED Sciatica Follow-Up: [facility] [Provider Group] [facility] [Provider Group] Prescriptions: Naproxen Sodium 220 mg PO BID PRN #14 tablet PRN Reason: Pain Comments: As we discussed, you need to make arrangements to see a primary care provider in the outpatient setting (such as a clinic) and make, and keep, appointments on a regular basis so that your chronic/recurrent problems can be addressed in the appropriate setting. Discharge Date/Time: 05/01/18 03:55
[2018-05-01] MEDS ORDERED: NAPROXEN 250 MG TABLET PO STA (03:14)
[2018-05-01] MEDS ORDERED: DEXAMETHASONE 10 MG/ML VIAL PO STA (03:14)
[2018-05-01 03:53] VITALS: BP 117/74
== END 2018-05-01 03:55 | disposition home or self-care (01) ==
LOC: EDUNIT# → ED 00:13
DX: M79.662 Pain in left lower leg (principal); M79.661 Pain in right lower leg
CPT/HCPCS: 99283; A9270

== ENCOUNTER 2022-05-16 08:42 | Outpatient (CLI) | payer MEDICAID | END 2022-05-16 08:43 | disposition critical access hospital (66) | LOC: EMS 08:42 | DX: I48.91 Unspecified atrial fibrillation (principal) | CPT/HCPCS: A0425; A0429; A0999 ==

== ENCOUNTER 2022-05-16 09:02 | Emergency (ER) | payer MEDICAID ==
--- NOTE | 2022-05-16 09:08 | ED Physician Documentation ---
History of Present Illness - Stated complaint Stated Complaint: AFIB - Additonal information Additional information: Patient is 57-year-old male presenting to the emergency department with chief complaints of A. fib and chest pain. Currently homeless. Reports regular use of alcohol. States has had chest pain on and off for 1-1/2 months. Reports takes baby aspirin but is not on any other medications. Endorses for daily heavy alcohol use. Denies other illicit substances. Review of Systems Ten Systems: 10 systems reviewed and negative Cardiac: reports: Chest pain / pressure PD PAST MEDICAL HISTORY - Past Medical History Cardiovascular: Atrial fibrillation Respiratory: Sleep apnea Neuro: None GI: None : None HEENT: None Psych: Other Musculoskeletal: None Derm: None - Past Surgical History Past Surgical History: No - Present Medications Home Medications: Ambulatory Orders Medication Instructions Recorded Confirmed Lorazepam [Ativan] 1 - 2 mg PO Q6HR PRN #20 tablet 04/21/18 Cyclobenzaprine [Flexeril] 10 mg PO TID PRN #20 tablet 04/26/18 Metoprolol Tartrate [Lopressor] 25 mg PO BID #40 tablet 04/26/18 Naproxen Sodium 220 mg PO BID PRN #14 tablet 05/01/18 - Allergies Allergies/Adverse Reactions: Allergies Allergy/AdvReac Type Severity Reaction Status Date / Time No Known Drug Allergies Allergy Verified 05/16/22 09:14 - Social History Does the pt smoke?: No Smoking Status: Never smoker Does the pt drink ETOH?: Yes Does the pt have substance abuse?: No - Immunizations Immunizations are current?: Yes - POLST Patient has POLST: No PD ED PE NORMAL - Vitals Vital signs reviewed: Yes - General General: Alert and 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, No acute distress - HEENT HEENT: Atraumatic - Neck Neck: Supple, no meningeal sign - Cardiac Cardiac: Other (Irregular pulse) - Respiratory Respiratory: No respiratory distress - Abdomen Abdomen: Normal bowel sounds - Male Male : Deferred - Rectal Rectal: Deferred - Derm Derm: Normal color - Extremities Extremities: No deformity Results - Vitals Vitals: Vital Signs - 24 hr 05/16/22 09:11 Temperature 36.4 C L Heart Rate 92 Respiratory 29 H Rate Blood Pressure 109/81 H O2 Saturation 98 Oxygen O2 Source Room air - EKG (time done) 0905 Rate: Rate (enter#) (97) Rhythm: Atrial fibrillation [place]: Normal Intervals: Normal [place] QRS: Normal Ischemia: Normal ST segments, Non specific changes Computer interpretation: Disagree with computer - Labs Labs: Laboratory Tests 05/16/22 05/16/22 05/16/22 09:30 09:30 09:30 WBC 3.7 L RBC 4.21 L Hgb 13.9 L Hct 42.1 MCV 100.0 H MCH 33.0 H MCHC 33.0 RDW 16.3 H Plt Count 73 L MPV 8.8 Neut # (Auto) 1.8 Lymph # (Auto) 1.0 L [place] # (Auto) 0.6 Eos # (Auto) 0.2 Baso # (Auto) 0.1 Absolute Nucleated RBC 0.00 Nucleated RBC % 0.0 PT 9.7 L INR 0.8 Sodium 139 Potassium 3.8 Chloride 101 Carbon Dioxide 25 Anion Gap 13.0 BUN 11 Creatinine 0.8 Estimated GFR (MDRD) 99 Glucose 117 H Calcium 8.8 Total Bilirubin 0.7 AST 49 H ALT 40 Alkaline Phosphatase 79 Troponin I High Sens Total Protein 7.5 Albumin 4.4 Globulin 3.1 Albumin/Globulin Ratio 1.4 Lipase 77 H Ethyl Alcohol 459.7 05/16/22 09:30 WBC RBC Hgb Hct MCV MCH MCHC RDW Plt Count MPV Neut # (Auto) Lymph # (Auto) [place] # (Auto) Eos # (Auto) Baso # (Auto) Absolute Nucleated RBC Nucleated RBC % PT INR Sodium Potassium Chloride Carbon Dioxide Anion Gap BUN Creatinine Estimated GFR (MDRD) Glucose Calcium Total Bilirubin AST ALT Alkaline Phosphatase Troponin I High Sens 11.5 Total Protein Albumin Globulin Albumin/Globulin Ratio Lipase Ethyl Alcohol PD MEDICAL DECISION MAKING - ED course Complexity details: reviewed results, d/w patient ED course: Patient 57-year-old male presenting to the emergency department with 1-1/2-month intermittent episodes of chest pain. Found to be in rate controlled atrial fibrillation on arrival. Also extremely intoxicated on arrival. Troponin negative. Mild pancytopenia noted, likely secondary to alcohol abuse. Patient monitored in the emergency department for approximately 2 hours before I was called into his room by nursing staff. Was found to be standing at the side of his bed, had removed his IV, was actively bleeding onto the floor and informed me that he was leaving the emergency department at that time. He was provided discharge instructions and encouraged to abstain from alcohol in the future as well as to follow-up with his primary care doctor. Departure - Departure Disposition: 01 Home, Self Care Clinical Impression: Atypical chest pain, Atrial fibrillation, Alcohol intoxication Instructions: Atrial Fibrillation Dc, ED Alcohol Intoxication Comments: Thank you for allowing us to care for you today at [facility]. The testing we were able to perform today was all very reassuring. I do recommend working towards quitting drinking. Please follow-up with your primary care doctor. If it anytime you have new or worsening symptoms please not hesitate to return.
[2022-05-16 09:14] VITALS: BP 109/81
[2022-05-16] MEDS ORDERED: SODIUM CHLORIDE 0.9% 1,000 ML IV STA (09:20)
[2022-05-16 10:11] LABS: BASOPHILS # (AUTO) 0.1 10^3/uL (0.0-0.1); BASOPHILS % (AUTO) 1.6 %; EOSINOPHILS # (AUTO) 0.2 10^3/uL (0.0-0.7); EOSINOPHILS % (AUTO) 5.2 %; HCT - HEMATOCRIT 42.1 % (42.0-52.0); HGB - HEMOGLOBIN 13.9 g/dL (14.0-18.0); LYMPHOCYTES % (AUTO) 28.2 %; MEAN PLATELET VOLUME 8.8 fL (7.4-11.4); MONOCYTES # (AUTO) 0.6 10^3/uL (0.0-1.0); MONOCYTES % (AUTO) 15.1 %; NEUTROPHILS # (AUTO) 1.8 10^3/uL (1.5-6.6); NEUTROPHILS % (AUTO) 49.6 %; PLT - PLATELET COUNT 73 10^3/uL (130-450); RED BLOOD COUNT 4.21 10^6/uL (4.70-6.10); RED CELL DISTRIBUTION WIDTH 16.3 % (12.0-15.0); WHITE BLOOD COUNT 3.7 x10^3/uL (4.8-10.8)
[2022-05-16 10:17] LABS: INR 0.8 (0.8-1.2); PT - PROTHROMBIN TIME 9.7 secs (9.9-12.6)
[2022-05-16 10:38] LABS: ALBUMIN 4.4 g/dL (3.2-5.5); ALBUMIN/GLOBULIN RATIO 1.4 (1.0-2.2); BILIRUBIN,TOTAL 0.7 mg/dL (0.2-1.0); CALCIUM 8.8 mg/dL (8.5-10.3); CREATININE 0.8 mg/dL (0.6-1.2); ETOH - ETHANOL 459.7 mg/dL; POTASSIUM 3.8 mmol/L (3.5-5.0); TOTAL PROTEIN 7.5 g/dL (6.7-8.2)
== END 2022-05-16 11:02 | disposition home or self-care (01) ==
LOC: EDUNIT# → ED 09:02
DX: I48.91 Unspecified atrial fibrillation (principal); R07.89 Other chest pain; F10.129 Alcohol abuse with intoxication, unspecified
CPT/HCPCS: 36415; 80053; 80320; 83690; 84484; 85025; 85610; 93005; 99281; 99284

== ENCOUNTER 2022-05-17 06:41 | Emergency (ER) | payer MEDICAID ==
[2022-05-17] MEDS ORDERED: THIAMINE 100 MG TABLET PO STA (07:00)
[2022-05-17] MEDS ORDERED: PHENobarbital 65 MG/ML VIAL IV STA (07:19)
[2022-05-17] MEDS ORDERED: SODIUM CHLORIDE 0.9% 1,000 ML IV STA (07:22)
--- NOTE | 2022-05-17 07:22 | ED Physician Documentation ---
History of Present Illness - Stated complaint Stated Complaint: FEET NUMBNESS - Chief complaint Chief Complaint: Ext Problem - History obtained from History obtained from: Patient - History of Present Illness Timing: Prior to arrival - Additonal information Additional information: 57-year-old male with history of homelessness, severe alcohol abuse, multiple visits to ED (44 visits to 9 EDs in 12 months) presents for feet and hand numbness, "my heart is flip-flopping", and possible seizure since yesterday. Of note, patient was seen yesterday in our ER for A. fib and left AMA after unremarkable work-up, and told staff to "fuck off" on his way out. Patient states he thinks he might of had a seizure because he woke up feeling very sore, however denies tongue biting, urinating on self, no one witnessed this possible seizure. Last drink was last night. Denies back pain, bowel or bladder incontinence, denies saddle anesthesia. Patient ambulated unassisted with all of his belongings to the ED on presentation. PD PAST MEDICAL HISTORY - Past Medical History Past Medical History: Yes Cardiovascular: Atrial fibrillation Respiratory: Sleep apnea Neuro: None Endocrine/Autoimmune: None GI: None : None HEENT: None Psych: Other Musculoskeletal: None Derm: None - Past Surgical History Past Surgical History: No - Present Medications Home Medications: Ambulatory Orders Medication Instructions Recorded Confirmed No Known Home Medications 05/17/22 05/17/22 - Allergies Allergies/Adverse Reactions: Allergies Allergy/AdvReac Type Severity Reaction Status Date / Time No Known Drug Allergies Allergy Verified 05/17/22 06:57 - Social History Does the pt smoke?: No Smoking Status: Never smoker Does the pt drink ETOH?: Yes Does the pt have substance abuse?: No - Immunizations Immunizations are current?: Yes - POLST Patient has POLST: No PD ED PE NORMAL - Vitals Vital signs reviewed: Yes - General General: Alert and 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, No acute distress, Well developed/nourished - HEENT HEENT: Atraumatic, PERRL, EOMI, Other (mildly dry mucous membranes) - Neck Neck: Supple, no meningeal sign, No bony TTP - Cardiac Cardiac: No murmur, Strong equal pulses, Other (irregularly irregular, bpm 90- 110) - Respiratory Respiratory: No respiratory distress, Clear bilaterally - Abdomen Abdomen: Soft, Non tender, Non distended - Back Back: No CVA TTP, No spinal TTP - Derm Derm: Normal color, Warm and dry, No rash - Extremities Extremities: No deformity, No tenderness to palpate, Normal ROM s pain, No edema, No calf tenderness / cord, Other (2+ DP pulses bilaterally, downgoing babinsky sign bilaterally) - Neuro Neuro: Alert and 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, bell staff 2-12 intact, No motor deficit, No sensory deficit, Normal speech - Psych Psych: Normal mood, Normal affect Results - Vitals Vitals: Vital Signs - 24 hr 05/17/22 05/17/22 05/17/22 06:51 09:15 10:10 Temperature 36.8 C Heart Rate 111 H 105 H 90 Respiratory 16 11 L 16 Rate Blood Pressure 136/76 H 155/99 H 150/107 H O2 Saturation 97 95 96 05/17/22 10:48 Temperature Heart Rate 107 H Respiratory 13 Rate Blood Pressure 137/97 H O2 Saturation 96 Oxygen O2 Source Room air PD MEDICAL DECISION MAKING - ED course Complexity details: reviewed old records, reviewed results, re-evaluated patient, considered differential, d/w patient ED course: Bilateral foot numbness and questionable seizure. Patient does appear to be tremulous on exam with mild tongue fasciculations on exam. Despite reported numbness patient does have full sensation in bilateral feet on physical exam with strong pulses, no signs or symptoms of cauda equina. Patient has long standing history of A. fib, baseline pulse appears to be between 90-110 per previous visit. Labs from yesterday reviewed, they are relatively unremarkable. Will give phenobarbital load for alcohol withdrawal and will reassess. Ultimately this is likely neuropathy secondary to longstanding alcohol abuse. [place] [facility] [place] Patient was given phenobarbital with improvement in vital signs and decrease in tremulousness. No evidence of seizure activity, patient ate breakfast and sleeping comfortably in bed. After medication administration patient was ambulatory without difficulty in the emergency department. Patient counseled on the importance of alcohol cessation and improvement in his neuropathy as well as his atrial fibrillation. He was given the phone number and address of [facility] in [place]. Patient discharged in stable condition Departure - Departure Disposition: 01 Home, Self Care Clinical Impression: Atrial fibrillation, Alcohol abuse, Peripheral neuropathy Condition: Stable Instructions: Atrial Fibrillation Dc Comments: THE NUMBNESS YOU ARE EXPERIENCING IN YOUR HANDS AND YOUR FEET WILL VERY LIKELY NOT GET BETTER UNTIL YOU STOP DRINKING ALCOHOL. FOLLOW UP WITH [facility] ([phone]). THEY ARE AN EXCELLENT RESOURCE FOR STOPPING ALCOHOL. LOCATED AT [address] IN [place] Discharge Date/Time: 05/17/22 10:48
[2022-05-17] MEDS ORDERED: FOLIC ACID 1 MG TABLET PO ONE (08:00)
[2022-05-17] MEDS ORDERED: SODIUM CHLORIDE 0.9% IM STA ×2 (08:03→08:08)
[2022-05-17] MEDS ORDERED: PHENOBARBITAL IM STA ×2 (08:03→08:08)
[2022-05-17] MEDS ORDERED: FOLIC ACID 1 MG TABLET PO SCH (09:00)
[2022-05-17 10:49] VITALS: BP 137/97
== END 2022-05-17 10:48 | disposition home or self-care (01) ==
LOC: ED 06:41
DX: I48.91 Unspecified atrial fibrillation (principal); F10.139 Alcohol abuse with withdrawal, unspecified; G62.9 Polyneuropathy, unspecified; Z59.00 Homelessness unspecified
CPT/HCPCS: 96372; 99284; A9270

== ENCOUNTER 2022-05-19 05:32 | Outpatient (CLI) | payer MEDICAID | END 2022-05-19 05:33 | disposition critical access hospital (66) | LOC: EMS 05:32 | DX: I48.91 Unspecified atrial fibrillation (principal); Z59.00 Homelessness unspecified | CPT/HCPCS: A0425; A0429 ==

== ENCOUNTER 2022-05-29 00:59 | Outpatient (CLI) | payer MEDICAID | END 2022-05-29 01:00 | disposition critical access hospital (66) | LOC: EMS 00:59 | DX: Z76.0 Encounter for issue of repeat prescription (principal); I48.91 Unspecified atrial fibrillation; S61.216A Laceration without foreign body of right little finger without damage to nail, initial encounter; W22.8XXA Striking against or struck by other objects, initial encounter; R04.0 Epistaxis | CPT/HCPCS: A0425; A0429; A0999 ==

== ENCOUNTER 2022-05-29 01:14 | Emergency (ER) | payer MEDICAID ==
[2022-05-29 01:21] VITALS: BP 131/98
--- NOTE | 2022-05-29 02:16 | ED Physician Documentation ---
History of Present Illness - Stated complaint Stated Complaint: MED REFILL/ETOH - Chief complaint Chief Complaint: General - History obtained from History obtained from: Patient, Police - Additonal information Additional information: 57-year-old undomiciled male with history of atrial fibrillation presents brought in by police. Patient was drinking alcohol this evening and was picked up by police, told them that he wanted to go to the emergency department to have his medications filled. In the ED, patient is unable or unwilling to tell me what medications he takes for atrial fibrillation and, when asked if I could provide him with a prescription for Eliquis he states "I won't take it anyways". further history limited by patient noncompliance. Review of Systems Unable to obtain: Uncooperative PD PAST MEDICAL HISTORY - Past Medical History Cardiovascular: Atrial fibrillation Respiratory: Sleep apnea Neuro: None Endocrine/Autoimmune: None GI: None : None HEENT: None Psych: Other Musculoskeletal: None Derm: None - Past Surgical History Past Surgical History: No - Present Medications Home Medications: Ambulatory Orders Medication Instructions Recorded Confirmed No Known Home Medications 05/17/22 05/19/22 - Allergies Allergies/Adverse Reactions: Allergies Allergy/AdvReac Type Severity Reaction Status Date / Time No Known Drug Allergies Allergy Verified 05/29/22 01:19 - Social History Does the pt smoke?: No Smoking Status: Never smoker Does the pt drink ETOH?: Yes Does the pt have substance abuse?: No - Immunizations Immunizations are current?: Yes - POLST Patient has POLST: No PD ED PE NORMAL - Vitals Vital signs reviewed: Yes - General General: Other (disheveled appearing. alert and oriented in NAD) - HEENT HEENT: Atraumatic, PERRL, EOMI - Neck Neck: Supple, no meningeal sign - Cardiac Cardiac: Other (regular rate, irregularly irregular rhythm) - Respiratory Respiratory: No respiratory distress, Clear bilaterally - Derm Derm: Normal color, Warm and dry - Extremities Extremities: No deformity - Neuro Neuro: Alert and 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 - Psych Psych: Normal mood, Normal affect Results - Vitals Vitals: Vital Signs - 24 hr 05/29/22 01:17 Temperature 36.8 C Heart Rate 88 Respiratory 18 Rate Blood Pressure 131/98 H O2 Saturation 98 Oxygen O2 Source Room air PD MEDICAL DECISION MAKING - ED course ED course: 57-year-old man presents brought in by police. Due to the observation in the emergency department patient was clinically sober and ambulatory without difficulty. He declined prescription for atrial fibrillation medication, stating he would not take it. I discharged the patient and told him to return if he could remember the names of his medications and if he would be willing to fill a script and to take them. Departure - Departure Disposition: 01 Home, Self Care Clinical Impression: Alcohol abuse Condition: Stable Instructions: ED Alcohol Abuse Comments: You were seen for evaluation after being brought in by police. Since you cannot remember your medications and said you don't want to take them, I was unable to provide them for you. Please return to the emergency department if you have any other concerns. Discharge Date/Time: 05/29/22 02:22
== END 2022-05-29 02:22 | disposition home or self-care (01) ==
LOC: EDUNIT# → ED 01:14
DX: F10.129 Alcohol abuse with intoxication, unspecified (principal); I48.91 Unspecified atrial fibrillation
CPT/HCPCS: 99281; 99283

== ENCOUNTER 2022-05-29 17:10 | Outpatient (CLI) | payer MEDICAID | END 2022-05-29 17:11 | disposition critical access hospital (66) | LOC: EMS 17:10 | DX: R25.1 Tremor, unspecified (principal); Z72.89 Other problems related to lifestyle | CPT/HCPCS: A0425; A0429; A0999 ==

== ENCOUNTER 2022-05-29 17:33 | Emergency (ER) | payer MEDICAID ==
--- NOTE | 2022-05-29 18:20 | ED Physician Documentation ---
PD HPI NVD - Stated complaint Stated Complaint: ETOH - Chief complaint Chief Complaint: General - History obtained from History obtained from: Patient - History of Present Illness Timing - onset: Today Timing - duration: Days (1) Timing - details: Gradual onset (he states his last drink was around midinght last evening, and he is having withdrawal symptoms through the day today. [facility] and reportedly they were arranging patient to go to detox tomorrow, but developed significant symptoms and vomiting the past couple of hours.), Still present Associated symptoms: Loss of appetite, Other (nausea and vomiting, with shakiness and fast heart rate. History of alcoholism with withdrawal episodes in the past. Similar but he says current episode is worse.). No: Fever, Abdominal pain, Hematemesis, Near syncope / syncope Contributing factors: Alcohol use (with last drink about 17 hours ago, with withdrawal developing through afternoon.). No: Sick contact Improved by: No: Vomiting Worsened by: No: Eating Similar symptoms before: Diagnosis (he states has had similar sympotms with alchol withdrawal in the past. He states has had withdrawal seizures in the past. No recurrent seizure disorder.) Recently seen: Emergency Dept (yesterday for intoxication.) Review of Systems Constitutional: denies: Fever, Chills, Myalgias Nose: denies: Rhinorrhea / runny nose, Congestion Throat: denies: Sore throat Cardiac: reports: Palpitations (feeling heart rate is going fast c/w atrial fib.). denies: Chest pain / pressure Respiratory: denies: Cough GI: reports: Abdominal Pain (cramping upper abd.), Nausea, Vomiting. denies: Constipation, Diarrhea, Bloody / black stool Skin: denies: Abrasion (s), Laceration (s) Musculoskeletal: denies: Neck pain, Back pain Neurologic: reports: Generalized weakness. denies: Focal weakness, Numbness, Near syncope, Headache Psychiatric: denies: Depressed PD PAST MEDICAL HISTORY - Past Medical History Past Medical History: Yes Cardiovascular: GA, Atrial fibrillation (he states he takes ASA daily, and does not want to be on anticoagulants. He denies current rate limiting meds such as betablockers. ) Respiratory: COPD, Sleep apnea Neuro: Peripheral neuropathy, Seizure disorder Endocrine/Autoimmune: None GI: None : None HEENT: None Psych: Other Musculoskeletal: Osteoarthritis Derm: None - Past Surgical History Past Surgical History: No Ortho: Shoulder arthroplasty - Present Medications Home Medications: Ambulatory Orders Medication Instructions Recorded Confirmed Aspirin [Aspirin EC] 81 mg PO DAILY 05/29/22 05/29/22 Baclofen [Lioresal] 10 mg PO DAILY 05/29/22 05/29/22 Buspirone HCl 10 mg PO BID 05/29/22 05/29/22 Gabapentin [Neurontin] 600 mg PO BID 05/29/22 05/29/22 - Allergies Allergies/Adverse Reactions: Allergies Allergy/AdvReac Type Severity Reaction Status Date / Time No Known Drug Allergies Allergy Verified 05/29/22 17:35 - Living Situation Living Situation: reports: Alone Living Arrangement: reports: Homeless - Social History Does the pt smoke?: No Smoking Status: Current some day smoker Does the pt drink ETOH?: Yes ETOH Use: Beer (large volume usage daily with shakiness if goes more than noon time during the day. ) Does the pt have substance abuse?: No - Family History Family history: reports: Non contributory - Immunizations Immunizations are current?: Yes - POLST Patient has POLST: No PD ED PE NORMAL - Vitals Vital signs reviewed: Yes (tachycardic with rate 140s, irregular. ) - General General: Alert and 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, Well developed/nourished, Other (conversant and pleasant. very shaky generalized. ) - HEENT HEENT: Atraumatic, Pharynx benign - Neck Neck: Supple, no meningeal sign, No adenopathy, No JVD - Cardiac Cardiac: No murmur. No: RRR (tachycaric and irregular c/w atrial fib. CHADS2 score is zero, so reasonable to be just on ASA daily. He does not want to be on DOAC. ) - Respiratory Respiratory: No respiratory distress, Clear bilaterally - Abdomen Abdomen: Normal bowel sounds, Soft, Non distended, No organomegaly, Other (some tender without guarding nor percussion tender at epigastric area. ) Results - Vitals Vitals: Vital Signs - 24 hr 05/29/22 05/29/22 05/29/22 17:36 18:18 18:47 Temperature 36.6 C Heart Rate 65 143 H 106 H Respiratory 22 20 21 Rate Blood Pressure 138/84 H 157/104 H O2 Saturation 97 99 96 05/29/22 05/29/22 19:26 20:50 Temperature Heart Rate 94 102 H Respiratory 14 15 Rate Blood Pressure 135/99 H 146/103 H O2 Saturation 97 98 Oxygen O2 Source Room air - Labs Labs: Laboratory Tests 05/29/22 05/29/22 18:47 18:47 WBC 4.6 L RBC 4.20 L Hgb 13.6 L Hct 42.3 MCV 100.7 H MCH 32.4 H MCHC 32.2 RDW 14.3 Plt Count 78 L MPV 9.8 Neut # (Auto) 3.2 Lymph # (Auto) 0.6 L [place] # (Auto) 0.7 Eos # (Auto) 0.1 Baso # (Auto) 0.1 Absolute Nucleated RBC 0.00 Nucleated RBC % 0.0 Sodium 135 Potassium 4.5 Chloride 99 L Carbon Dioxide 29 Anion Gap 7.0 BUN 15 Creatinine 0.8 Estimated GFR (MDRD) 99 Glucose 109 H Calcium 9.1 Magnesium 1.7 Total Bilirubin 1.0 AST 81 H ALT 59 Alkaline Phosphatase 80 Total Protein 7.4 Albumin 4.4 Globulin 3.0 Albumin/Globulin Ratio 1.5 Lipase 76 H Ethyl Alcohol < 5.0 PD MEDICAL DECISION MAKING - ED course Complexity details: considered differential (very shaky with apparent alcohol withdrawal, and fast atrial fib (some of the tachycardia likely rleated to the NIK). ), d/w patient ED course: Initial eval and treatment by me and he is seeming some calmer with initial meds. Care to on coming ER physician. Hopefully can control NIK and afib rate and try to get patient to detox tomorrow (would be unable to get him there overnight). Departure - Departure Clinical Impression: Alcohol withdrawal, Atrial fibrillation with rapid ventricular response, Alcohol dependence Condition: Stable Record reviewed to determine appropriate education?: Yes
[2022-05-29] MEDS ORDERED: PHENobarbital 65 MG/ML VIAL IV STA ×2 (18:24→20:25)
[2022-05-29] MEDS ORDERED: SODIUM CHLORIDE 0.9% 1,000 ML IV STA (18:24)
[2022-05-29] MEDS ORDERED: LORazepam 2 MG/ML VIAL IVP STA (18:25)
[2022-05-29] MEDS ORDERED: diltiaZEM INJ 5 MG/ML VIAL IVP STA (18:26)
[2022-05-29] MEDS ORDERED: THIAMINE INJ 100 MG, MAGNESIUM SULFATE 2 GM, MULTIVITAMIN 10 ML, FOLIC ACID INJ 1 MG in... IV ONE ×5 (18:26)
[2022-05-29] MEDS ORDERED: THIAMINE 100 MG/1 ML 2 ML MDV IM STA (18:27)
[2022-05-29 18:54] LABS: BASOPHILS # (AUTO) 0.1 10^3/uL (0.0-0.1); BASOPHILS % (AUTO) 1.3 %; EOSINOPHILS # (AUTO) 0.1 10^3/uL (0.0-0.7); EOSINOPHILS % (AUTO) 2.2 %; HCT - HEMATOCRIT 42.3 % (42.0-52.0); HGB - HEMOGLOBIN 13.6 g/dL (14.0-18.0); LYMPHOCYTES # (AUTO) 0.6 10^3/uL (1.5-3.5); LYMPHOCYTES % (AUTO) 12.3 %; MEAN CORPUSCULAR HEMOGLOBIN 32.4 pg (27.0-31.0); MEAN CORPUSCULAR HGB CONC 32.2 g/dL (32.0-36.0); MEAN CORPUSCULAR VOLUME 100.7 fL (80.0-94.0); MEAN PLATELET VOLUME 9.8 fL (7.4-11.4); MONOCYTES # (AUTO) 0.7 10^3/uL (0.0-1.0); MONOCYTES % (AUTO) 15.1 %; NEUTROPHILS # (AUTO) 3.2 10^3/uL (1.5-6.6); NEUTROPHILS % (AUTO) 68.9 %; PLT - PLATELET COUNT 78 10^3/uL (130-450); RED CELL DISTRIBUTION WIDTH 14.3 % (12.0-15.0); WHITE BLOOD COUNT 4.6 x10^3/uL (4.8-10.8)
[2022-05-29 19:08] LABS: ALBUMIN 4.4 g/dL (3.2-5.5); ALBUMIN/GLOBULIN RATIO 1.5 (1.0-2.2); ALKALINE PHOSPHATASE 80 IU/L (42-121); ALT ALANINE AMINOTRANSFERASE 59 IU/L (10-60); AST ASPARTATE AMINOTRANSFERASE 81 IU/L (10-42); BUN - BLOOD UREA NITROGEN 15 mg/dL (6-20); CALCIUM 9.1 mg/dL (8.5-10.3); CARBON DIOXIDE - CO2 29 mmol/L (21-32); CHLORIDE 99 mmol/L (101-111); CREATININE 0.8 mg/dL (0.6-1.2); ETOH - ETHANOL < 5.0 mg/dL; GFR - MDRD 99 (>89); GLUCOSE 109 mg/dL (70-100); LIPASE 76 U/L (22-51); MAGNESIUM 1.7 mg/dL (1.7-2.8); POTASSIUM 4.5 mmol/L (3.5-5.0); SODIUM 135 mmol/L (135-145); TOTAL PROTEIN 7.4 g/dL (6.7-8.2)
[2022-05-30] MEDS ORDERED: LORazepam 2 MG/ML VIAL IVP STA ×3 (01:40→11:39)
[2022-05-30] MEDS ORDERED: PHENobarbitaL 32.4 MG TABLET PO SCH (08:00)
[2022-05-30] MEDS ORDERED: THIAMINE 100 MG TABLET PO SCH (08:00)
[2022-05-30] MEDS ORDERED: diltiaZEM CD 120 MG CAPSULE PO SCH (08:00)
--- NOTE | 2022-05-30 08:26 | ED Physician Documentation ---
ED Addendum - Addendum Addendum: 05/30/22 08:24 The patient fared well overnight with chest regular interval dosing of Ativan for his withdrawal. No vomiting. Good mentation. I did write for some morning medications for his A. fib rate control with diltiazem, baby aspirin, phenobarbital orally to continue with that regimen for the withdrawal. We will check with [facility] and see if they are able to take the patient today for detox.
[2022-05-30] MEDS ORDERED: PHENobarbital 65 MG/ML VIAL IV STA ×2 (11:39→17:21)
[2022-05-30] MEDS ORDERED: KETOROLAC 15 MG/ML VIAL IVP STA (11:39)
[2022-05-30] MEDS ORDERED: HYDROmorphone 0.5 MG/0.5 ML SYRINGE IVP STA (17:22)
[2022-05-30 18:25] VITALS: BP 143/103
--- NOTE | 2022-06-02 02:38 | ED Physician Documentation ---
ED Addendum - Addendum Addendum: 06/02/22 02:36 The [employer] worker called during the day today and asked that the patient's prescription be sent to [facility] instead of [facility] because his insurance would not cover it. Apparently has not had his medicine as yet and is having shakiness. I did reroute his prescriptions to [facility]. I talked with the responsible person at this [facility] this evening. They are aware the prescriptions will be at the different pharmacy.
== END 2022-05-30 18:36 | disposition home or self-care (01) ==
LOC: EDUNIT# → ED 17:33
DX: F10.239 Alcohol dependence with withdrawal, unspecified (principal); Y90.0 Blood alcohol level of less than 20 mg/100 ml; I48.91 Unspecified atrial fibrillation; Z59.00 Homelessness unspecified; F17.200 Nicotine dependence, unspecified, uncomplicated
CPT/HCPCS: 36415; 80053; 80320; 83690; 83735; 85025; 96365; 96372; 96375; 96376; 99283; 99285; A9270; J1170; J2060; J3411

== ENCOUNTER 2022-06-06 20:33 | Outpatient (CLI) | payer MEDICAID | END 2022-06-06 20:34 | disposition critical access hospital (66) | LOC: EMS 20:33 | DX: R50.9 Fever, unspecified (principal); R04.0 Epistaxis | CPT/HCPCS: A0425; A0429; A0999 ==

== ENCOUNTER 2022-06-06 20:54 | Emergency (ER) | payer MEDICAID ==
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
[2022-06-06] MEDS ORDERED: SODIUM CHLORIDE 0.9% 1,000 ML IV STA (21:14)
[2022-06-06] MEDS ORDERED: LORazepam 2 MG/ML VIAL IVP STA ×2 (21:15→23:32)
[2022-06-06] MEDS ORDERED: THIAMINE INJ 100 MG, MAGNESIUM SULFATE 2 GM, MULTIVITAMIN 10 ML, FOLIC ACID INJ 1 MG in... IV ONE ×5 (21:15)
[2022-06-06] MEDS ORDERED: IBUPROFEN 400 MG TABLET PO STA (21:16)
[2022-06-06] MEDS ORDERED: diltiaZEM INJ 5 MG/ML VIAL IVP STA (21:18)
[2022-06-06] MEDS ORDERED: THIAMINE 100 MG/1 ML 2 ML MDV ONE (21:21)
[2022-06-06] MEDS ORDERED: MULTIVITAMIN IV 10 ML VIAL ONE (21:21)
[2022-06-06] MEDS ORDERED: MAGNESIUM SULFATE 1 GM/2 ML VIAL ONE (21:21)
[2022-06-06] MEDS ORDERED: FOLIC ACID 5 MG/1 ML 10ML MDV ONE (21:21)
[2022-06-06 21:35] LABS: BASOPHILS % (AUTO) 0.5 %; EOSINOPHILS % (AUTO) 0.1 %; HCT - HEMATOCRIT 42.6 % (42.0-52.0); HGB - HEMOGLOBIN 13.9 g/dL (14.0-18.0); LYMPHOCYTES # (AUTO) 0.4 10^3/uL (1.5-3.5); LYMPHOCYTES % (AUTO) 4.7 %; MEAN CORPUSCULAR HEMOGLOBIN 32.7 pg (27.0-31.0); MEAN CORPUSCULAR HGB CONC 32.6 g/dL (32.0-36.0); MEAN CORPUSCULAR VOLUME 100.2 fL (80.0-94.0); MONOCYTES # (AUTO) 1.4 10^3/uL (0.0-1.0); MONOCYTES % (AUTO) 17.3 %; NEUTROPHILS % (AUTO) 77.1 %; PLT - PLATELET COUNT 126 10^3/uL (130-450); RED BLOOD COUNT 4.25 10^6/uL (4.70-6.10); WHITE BLOOD COUNT 7.8 x10^3/uL (4.8-10.8)
[2022-06-06 21:52] LABS: ALBUMIN/GLOBULIN RATIO 1.2 (1.0-2.2); ALKALINE PHOSPHATASE 55 IU/L (42-121); ALT ALANINE AMINOTRANSFERASE 26 IU/L (10-60); AST ASPARTATE AMINOTRANSFERASE 26 IU/L (10-42); BILIRUBIN,TOTAL 0.7 mg/dL (0.2-1.0); BUN - BLOOD UREA NITROGEN 20 mg/dL (6-20); CARBON DIOXIDE - CO2 24 mmol/L (21-32); CHLORIDE 98 mmol/L (101-111); CREATININE 1.2 mg/dL (0.6-1.2); ETOH - ETHANOL < 5.0 mg/dL; GFR - MDRD 62 (>89); GLUCOSE 140 mg/dL (70-100); LIPASE 38 U/L (22-51); POTASSIUM 3.3 mmol/L (3.5-5.0); SODIUM 133 mmol/L (135-145); TOTAL PROTEIN 7.4 g/dL (6.7-8.2)
--- NOTE | 2022-06-06 22:40 | XRAY Report ---
PROCEDURE: Chest 2 View X-Ray INDICATIONS: fever, cough TECHNIQUE: 2 views of the chest. COMPARISON: Chest x-ray 02/16/2018. FINDINGS: Surgical changes and devices: None. Lungs and pleura: There are indistinct asymmetric opacities within the right lung base suggestive of atypical pneumonia versus atelectasis. Mild blunting of the left costophrenic angle appears similar t o the prior study and likely represents pleural thickening and less likely a small left pleural effus ion. No pneumothorax. Mediastinum: Mediastinal contours are normal. Heart size is normal. Bones and chest wall: No suspicious bony abnormalities. Soft tissues appear unremarkable. IMPRESSION: 1. Indistinct asymmetric opacities in the right lung base compatible with atypical pneumonia versus a telectasis. 2. Mild blunting of the left costophrenic angle appears similar to the prior study and likely represe nts pleural thickening and less likely small left pleural effusion. Reviewed by: Ramana Bhatia MD on 06/06/2022 10:39 PM PDT Approved by: Ramana Bhatia MD on 06/06/2022 10:39 PM PDT Station ID: [id number]
[2022-06-06 22:59] LABS: B. PARAPERTUSSIS- RESP PCR PAN NOT DETECTED; B. PERTUSSIS- RESP PCR PANEL NOT DETECTED; C. PNEUMONIAE- RESP PCR PANEL NOT DETECTED; CORONAVIRUS 229E-RESP PCR NOT DETECTED; CORONAVIRUS HKU1-RESP PCR NOT DETECTED; CORONAVIRUS NL63-RESP PCR NOT DETECTED; CORONAVIRUS OC43-RESP PCR NOT DETECTED; HUMAN METAPNEUMOVIRUS NOT DETECTED; INFLUENZA A- RESP PCR PANEL NOT DETECTED; INFLUENZA B - RESP PCR PANEL NOT DETECTED; M. PNEUMONIAE- RESP PCR PANEL NOT DETECTED; PARAINFLUENZA VIRUS 1 NOT DETECTED; PARAINFLUENZA VIRUS 2 NOT DETECTED; PARAINFLUENZA VIRUS 3 NOT DETECTED; PARAINFLUENZA VIRUS 4 NOT DETECTED; RHINOVIRUS/ENTEROVIRUS DETECTED; RSV- RESP PCR PANEL NOT DETECTED; SARS-CoV-2 -RESP PCR PANEL NOT DETECTED
[2022-06-06 23:48] LABS: BILIRUBIN,URINE NEGATIVE (NEGATIVE); CLARITY,URINE CLEAR (CLEAR); GLUCOSE, URINE (UA) NEGATIVE (NEGATIVE); KETONES,URINE (UA) NEGATIVE (NEGATIVE); LEUKOCYTE ESTERASE, URINE NEGATIVE (NEGATIVE); NITRITE,URINE NEGATIVE (NEGATIVE); OCCULT BLOOD,URINE NEGATIVE (NEGATIVE); PROTEIN,URINE NEGATIVE (NEGATIVE); UROBILINOGEN,URINE 0.2 (NORMAL) E.U./dL (NORMAL)
[2022-06-07 05:24] VITALS: BP 122/85
== END 2022-06-07 06:19 | disposition home or self-care (01) ==
LOC: EDUNIT# → ED 20:54
DX: F10.930 Alcohol use, unspecified with withdrawal, uncomplicated (principal); I48.91 Unspecified atrial fibrillation; Z79.82 Long term (current) use of aspirin; Z59.00 Homelessness unspecified; Z20.822 Contact with and (suspected) exposure to COVID-19
CPT/HCPCS: 36415; 71046; 80053; 80320; 81003; 82140; 83605; 83690; 83880; 84145; 85025; 87633; 93005; 96365; 96375; 96376; 99284; A9270; J2060; J3411; 81001; 87086

== ENCOUNTER 2022-07-12 23:52 | Emergency (ER) | payer MEDICAID ==
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
--- NOTE | 2022-07-13 01:24 | XRAY Report ---
PROCEDURE: Ribs w/PA Chest RT INDICATIONS: injury, right chest wall pain, tenderness TECHNIQUE: 2 views of the right were acquired, along with a single view chest. COMPARISON: Chest x-ray 06/06 FINDINGS: Surgical changes and devices: None. Bones and chest wall: No displaced rib fracture identified. No suspicious bony lesions. Overlying s oft tissues appear unremarkable. Lungs and pleura: No pleural effusions or pneumothorax. Lungs appear clear. Mediastinum: Mediastinal contours appear normal. Heart size is normal. IMPRESSION: 1. No displaced rib fracture identified. Reviewed by: Ramana Bhatia MD on 07/13/2022 1:23 AM PST Approved by: Ramana Bhatia MD on 07/13/2022 1:23 AM PST Station ID: [id number]
[2022-07-13 06:45] VITALS: BP 117/77
== END 2022-07-13 05:52 | disposition home or self-care (01) ==
LOC: ED 23:52
DX: S20.211A Contusion of right front wall of thorax, initial encounter (principal); W22.8XXA Striking against or struck by other objects, initial encounter; F10.10 Alcohol abuse, uncomplicated
CPT/HCPCS: 99282; 99283

== ENCOUNTER → 2022-07-12 | Outpatient (CLI) | payer MEDICAID | END | disposition critical access hospital (66) | LOC: EMS 23:34 | DX: M79.89 Other specified soft tissue disorders (principal); M79.641 Pain in right hand | CPT/HCPCS: A0425; A0429; A0999 ==

== ENCOUNTER 2022-07-13 23:11 | Emergency (ER) | payer MEDICAID ==
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
[2022-07-14 06:17] VITALS: BP 144/86
== END 2022-07-14 06:16 | disposition home or self-care (01) ==
LOC: EDUNIT# → ED 23:11
DX: J06.9 Acute upper respiratory infection, unspecified (principal)
CPT/HCPCS: 99281; 99283

== ENCOUNTER → 2022-07-13 | Outpatient (CLI) | payer MEDICAID | END | disposition critical access hospital (66) | LOC: EMS 22:48 | DX: M79.631 Pain in right forearm (principal); M79.641 Pain in right hand | CPT/HCPCS: A0425; A0429; A0888 ==